=== PATIENT | female | born 1955 | race Caucasian/White ===

== ENCOUNTER 2016-10-21 13:41 | Emergency (ER) | payer OTHER ==
[~2016-10-21] VITALS: Ht 167.6 cm; Wt 72.9 kg
[~2016-10-21 13:41] MED LIST: ALBU1AER9 INH; LPT40 PO; NCDT21X TD; PRAZ2CAP2 PO; RITALIN PO
[2016-10-21 13:43] VITALS: TEMP 37.1; Ht 167.6 cm; Wt 72.9 kg
[2016-10-21] MEDS ORDERED: DIFL500T PO (14:10)
[2016-10-21] MEDS ORDERED: LEVO100T PO (14:10)
[2016-10-21] MEDS ORDERED: VNTHFA/IN INH (14:18)
[2016-10-21] MEDS ORDERED: KETOROLAC TROMETHAMINE 30 MG/ML VIAL IV STA (14:27)
[2016-10-21] MEDS ORDERED: CYCL0.052 OP (14:36)
[2016-10-21] MEDS ORDERED: METH20TA66 PO (14:40)
[2016-10-21] MEDS ORDERED: NRV/5 PO (14:40)
[2016-10-21] MEDS ORDERED: TRAM-10 PO (14:50)
--- NOTE | 2016-10-21 14:59 | DIAGNOSTIC IMAGING REPORT ---
CHEST ONE VIEW PORTABLE CLINICAL HISTORY: Chest pain. COMPARISON STUDY: Chest radiograph August 09, 2016. FINDINGS: Lung volumes are normal. There is no pneumothorax or pleural effusion. Cardiac size is normal. Mediastinal contours are normal. Several cysts within the lungs are unchanged. There is no evidence of pulmonary edema. IMPRESSION: No acute cardiopulmonary findings. No change in appearance of the chest. Electronically signed by: Antony Kelly M.D. 10/21/2016 2:58 PM Dictated Date/Time: 10/21/2016 2:57 PM
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
[2016-10-21 15:46] LABS: BENZODIAZEPINE, URINE NEG (NEG); COCAINE,URINE NEG (NEG); PHENCYCLIDINE, URINE NEG (NEG)
[2016-10-21 15:59] LABS: ACETAMINOPHEN < 2 ug/ml (10-30)
[2016-10-21 16:27] LABS: ALKALINE PHOSPHATASE 79 U/L (45-117); ALT/SGPT 19 U/L (12-78); AST/SGOT 18 U/L (15-37); BLOOD UREA NITROGEN 18 mg/dl (7-18); BUN/CREATININE RATIO 16.7 (10-20); CALCIUM 9.4 mg/dl (8.5-10.1); CARBON DIOXIDE 23 mmol/L (21-32); CHLORIDE 103 mmol/L (98-107); GLUCOSE 112 mg/dl (70-99); POTASSIUM 3.8 mmol/L (3.5-5.1); SODIUM 141 mmol/L (136-145); THYROID STIMULATING HORMONE 0.413 uIu/ml (0.300-4.500)
[2016-10-21 16:55] LABS: BASO % 0.1 %; BASO ABS # 0.01 K/uL (0-0.2); COMPLETE YES; EOS % 0.3 %; HEMATOCRIT 37.6 % (37-47); IG% 0.3 %; LYMPH % 28.2 %; MEAN CELL VOLUME 83.9 fL (80-100); MEAN CORPUSCULAR HEMOGLOBIN 29.2 pg (25-34); MEAN CORPUSCULAR HGB CONC 34.8 g/dl (32-36); MEAN PLATELET VOLUME 9.2 fL (7.4-10.4); MONO % 8.6 %; NEUT % 62.5 %; PLATELET COUNT 244 K/uL (130-400); RED BLOOD COUNT 4.48 M/uL (4.2-5.4); WHITE BLOOD COUNT 7.45 K/uL (4.8-10.8)
[2016-10-21 17:37] VITALS: BP 116/72; PULSE 73; O2SAT 96
[2016-10-21] MEDS ORDERED: TRAZ100T29 PO (17:56)
[2016-10-21] MEDS ORDERED: CLON1TAB3 PO (20:23)
[2016-10-21] MEDS ORDERED: TNR50 PO (20:23)
[2016-10-21] MEDS ORDERED: POLY1POW2 PO (20:23)
[2016-10-21] MEDS ORDERED: FLX/5 PO (20:23)
[2016-10-21] MEDS ORDERED: OMEP20CA9 PO (20:23)
[2016-10-21] MEDS ORDERED: LAMO1TAB21 PO (20:23)
[2016-10-21] MEDS ORDERED: NIFE30TA83 PO (21:54)
[2016-10-28] MEDS ORDERED: TNR50 PO (18:16)
[2016-10-29] MEDS ORDERED: VNTHFA/IN INH (13:16)
[2016-10-29] MEDS ORDERED: KETO10TA PO (13:19)
[2016-11-11] MEDS ORDERED: QUET1TAB7 PO (11:43)
[2016-12-11] MEDS ORDERED: NAPR1TAB9 PO (12:13)
== END 2016-10-21 17:39 | disposition home or self-care (01) ==
LOC: C.EDB 13:42 → C.EDA 17:39
DX: R07.81 Pleurodynia (principal); F41.9 Anxiety disorder, unspecified; J45.909 Unspecified asthma, uncomplicated; M25.559 Pain in unspecified hip; K21.9 Gastro-esophageal reflux disease without esophagitis; M79.7 Fibromyalgia; E78.5 Hyperlipidemia, unspecified; I10 Essential (primary) hypertension; E03.9 Hypothyroidism, unspecified; K58.9 Irritable bowel syndrome, unspecified; F32.9 Major depressive disorder, single episode, unspecified; F11.21 Opioid dependence, in remission; M32.9 Systemic lupus erythematosus, unspecified; F17.200 Nicotine dependence, unspecified, uncomplicated; Z90.710 Acquired absence of both cervix and uterus; Z82.49 Family history of ischemic heart disease and other diseases of the circulatory system

== ENCOUNTER 2016-10-28 10:51 | Observation (INO) | payer OTHER ==
[~2016-10-28] VITALS: Ht 165.1 cm; Wt 70.3 kg
[~2016-10-28 10:51] MED LIST changes: -ALBU1AER9 INH; +CLON1TAB3 PO; +CYCL0.052 OP; +DIFL500T PO; +FLX/5 PO; +LAMO1TAB21 PO; +LEVO100T PO; +METH20TA66 PO; -NCDT21X TD; +NIFE30TA83 PO; +NRV/5 PO; +OMEP20CA9 PO; +POLY1POW2 PO; -RITALIN PO; +TNR50 PO; +TRAM-10 PO; +TRAZ100T29 PO; +VNTHFA/IN INH
[2016-10-28] MEDS ORDERED: SODIUM CHLORIDE 0.9% 1000ML 1,000 ML IV SCH (11:38)
--- NOTE | 2016-10-28 11:57 | EMERGENCY ROOM VISIT NOTE ---
History Report prepared by Zionibgeno: Ronaldo Thapa Under the Supervision of: Dr. Mina Albarran D.O. First contact with patient: 11:36 Chief Complaint: CARDIAC ASSESSMENT Stated Complaint: CHEST PAIN/JAW PAIN/MIGRAINE/NECK TENDERNESS Nursing Triage Summary: Patient arrives by ALS with complaints of jaw numbness/pain, left neck tenderness, left upper chest pain, ems stated right facial droop - did not notice on arrival, No speech issues noted- speech is clear. left axillary tenderness, and lower ext. numbness. Patient has history of lupus and fibromyalgia, patient believes this could be "flare up" from lupus. History of Present Illness The patient is a 61 year old female who presents to the Emergency Room with complaints of headache. The patient has a history of migraines which have been complicated with weakness especially unilateral weakness. She has been seen in our facility previously for similar complaints and had an entire stroke workup. She also follows up with her primary neurologist. The patient states that she started having headaches over the last couple days. The symptoms worsened yesterday. She does state that she was going to visit a family member in the rehabilitation Center this morning when she started noticing difficulty speaking as well as facial drooping. The patient states that she is not sure if this could be a flare of her fibromyalgia but also notices left leg pain left leg tingling abdominal pain and left chest pain pain into the left jaw and pain to the left arm. The patient has not seen her family doctor for this. When the symptoms started to worsen while she was visiting her family member the ambulance was called and the patient was brought to our emergency department. The patient's symptoms appear to wax and wane and appear to be consistent with her previous complicated migraine history. Source of History: patient Onset: two days ago Position: head Quality: other (migraine) Timing: waxes/wanes Associated Symptoms: + abdominal pain, + chest pain, + numbness, + weakness Review of Systems See HPI for pertinent positives & negatives. A total of 10 systems reviewed and were otherwise negative. Past Medical & Surgical Medical Problems: (1) Asthma, Unspecified (2) Cocaine abuse in remission (3) Common Migraine W/O Intractable Migraine (4) Dysarthria (5) Esophageal Reflux (6) Fall (7) Fibromyalgia (8) Fibromyalgia (9) Headache (10) Hepatitis C (11) Hepatitis C Carrier (12) HLD (hyperlipidemia) (13) HTN (hypertension) (14) Hyperlipidemia Nec/Nos (15) Hypertension Nos (16) Hypothyroidism (17) Hypothyroidism Nos (18) Irritable Bowel Syndrome (19) Marijuana abuse (20) Migraine (21) Mood disorder (22) Myalgia And Myositis Nos (23) Opioid Dependence-Remiss (24) SLE (systemic lupus erythematosus) (25) Syst Lupus Erythematosis (26) Tobacco abuse (27) Ulcerative colitis Surgical Problems: (1) H/O colonoscopy (2) H/O total hysterectomy (3) H/O: hysterectomy (4) History of esophagogastroduodenoscopy (EGD) Family History Heart disease Hypertension Social History Smoking Status: Current Every Day Smoker Alcohol Use: occasionally Drug Use: none Marital Status: Housing Status: lives with family Occupation Status: disabled Current/Historical Medications Scheduled Albuterol Hfa (Ventolin Hfa), 2-4 PUFFS INH Q6H Atenolol (Atenolol), 75 MG PO BID Atorvastatin (Atorvastatin Calcium), 40 MG PO LUNCH Clonazepam (Klonopin), 1 MG PO TID Diflunisal (Dolobid), 500 MG PO BID Lamotrigine (Lamotrigine), 100 MG PO BID Levothyroxine Sodium (Synthroid), 100 MCG PO QAM Methylphenidate HCl (Methylphenidate HCl), 10 MG PO DAILY Nicotine (Nicoderm Cq 21MG Patch), 1 PATCH TD DAILY Omeprazole (Prilosec), 20 MG PO BID Polyethylene Glycol 3350 (Bulk (Polyethylene Glycol 3350), 17 GM PO QAM Prazosin Hcl (Prazosin), 2 MG PO HS Trazodone Hcl (Trazodone), 100 MG PO HS Scheduled PRN Cyclobenzaprine HCl (Cyclobenzaprine HCl), 5 MG PO TID PRN for Muscle Spasm Cyclosporine (Ophth) (Restasis), 1 DROP OP BID PRN for DRYNESS Nifedipine Ext Rel (Procardia Xl Ext Rel), 30 MG PO UD PRN for TAKE IN WINTER MONTHS Tramadol (Ultram), 50 MG PO Q6H PRN for Pain Allergies Coded Allergies: Codeine (Verified Allergy, Severe, HIVES, SWELLING, AND NAUSEA, 10/28/16) Pregabalin (Verified Allergy, Severe, ANAPHYLAXIS, 10/28/16) Iodinated Diagnostic Agents (Verified Adverse Reaction, Intermediate, headache, 10/28/16) Physical Exam Vital Signs Date Time Temp Pulse Resp B/P Pulse Ox O2 Delivery O2 Flow Rate FiO2 10/28/16 17:06 62 18 122/63 96 Room Air 10/28/16 16:05 61 10/28/16 15:01 57 16 139/85 94 Room Air 10/28/16 14:40 60 18 131/81 95 Room Air 10/28/16 14:02 61 18 143/87 98 Room Air 10/28/16 13:30 60 20 145/73 97 Room Air 10/28/16 13:01 58 18 116/66 96 Room Air 10/28/16 12:00 61 20 149/87 98 Room Air 10/28/16 11:59 66 10/28/16 11:45 65 20 160/85 97 Room Air 10/28/16 11:30 62 18 158/86 96 Room Air 10/28/16 11:15 61 20 176/84 97 Room Air 10/28/16 10:58 98 Room Air 10/28/16 10:58 37.0 60 20 156/87 98 Room Air 10/28/16 10:58 98 Room Air Physical Exam GENERAL: Patient is awake alert in no acute distress patient is resting comfortably and showing no signs of anxiety EYES: The conjunctivae are clear. The pupils are round and reactive. EARS, NOSE, MOUTH AND THROAT: The nose is without any evidence of any deformity. Mucous membranes are moist tongue is midline NECK: The neck is nontender and supple. RESPIRATORY: Normal respiratory effort is noted there is no evidence of wheezing rhonchi or rales CARDIOVASCULAR: Regular rate and rhythm noted there no murmurs rubs or gallops normal S1 normal S2 GASTROINTESTINAL: The abdomen is soft. Bowel sounds are present in all quadrants. Abdomen is nontender MUSCULOSKELETAL/EXTREMITIES: There is no evidence of gross deformity full range of motion is noted in the hips and shoulders SKIN: There is no obvious evidence of any rash. There are no petechiae, pallor or cyanosis noted. NEUROLOGIC: Patient is awake alert and oriented x3. Speech was dysarthric but understandable. There is no definite facial droop appreciated. Patellar tendon reflexes were 3 plus bilaterally. Patient was able to hold each leg off the bed for greater than 5 seconds. There is no drift in the upper extremities. Medical Decision & Procedures ER Provider Diagnostic Interpretation: Radiology results as stated below per my review and radiologist interpretation: CHEST ONE VIEW PORTABLE CLINICAL HISTORY: Stroke ATYPICAL CHEST PAIN, MIGRAINE. COMPARISON STUDY: 10/21/2016 FINDINGS: The heart is at the upper limits of normal in size. Mediastinal prominence is likely secondary to film rotation in the AP positioning. There is a left lower lobe lung cyst measuring 7 cm. There is no failure. There is no focal pulmonary consolidation.[ IMPRESSION: Stable left lower lobe pulmonary cyst. No active disease in the chest. Electronically signed by: Rudy Rubi M.D. 10/28/2016 11:59 AM Dictated Date/Time: 10/28/2016 11:[address] HEAD WITHOUT CONTRAST (CT) CLINICAL HISTORY: Stroke COMPARISON STUDY: 08-23 TECHNIQUE: Axial CT of the brain is performed from the vertex to the skull base. IV contrast was not administered for this examination. CT DOSE: 537.48 mGy.cm FINDINGS: No intra or extra-axial mass lesions are visualized. There is no CT evidence of acute cortical infarction. There is no evidence of midline shift. There is no acute hemorrhage. No calvarial fractures are visualized. There are minor white matter hypodensities likely on a small vessel basis. There is no evidence of pathologic ventricular dilatation. There is no evidence of acute sinusitis IMPRESSION: No acute intracranial findings Electronically signed by: Rudy Rubi M.D. 10/28/2016 12:47 PM Dictated Date/Time: 10/28/2016 12:46 PM Laboratory Results 10/28/16 12:57 Red Blood Count 4.91, Mean Corpuscular Volume 83.7, Mean Corpuscular Hemoglobin 29.3, Mean Corpuscular Hemoglobin Concent 35.0, Mean Platelet Volume 9.5, Neutrophils (%) (Auto) 55.8, Lymphocytes (%) (Auto) 36.4, Monocytes (%) (Auto) 7.0, Eosinophils (%) (Auto) 0.3, Basophils (%) (Auto) 0.3, Neutrophils # (Auto) 3.43, Lymphocytes # (Auto) 2.24, Monocytes # (Auto) 0.43, Eosinophils # (Auto) 0.02, Basophils # (Auto) 0.02 10/28/16 12:57 Test 10/28/16 11:56 10/28/16 12:10 10/28/16 12:57 10/28/16 17:33 Bedside Glucose 97 mg/dl (70-90) Urine Opiates Screen NEG (NEG) Urine Methadone, Qualitative NEG (NEG) Urine Barbiturates NEG (NEG) Urine Phencyclidine (PCP) Level NEG (NEG) Ur Amphetamine/Methamphetamine NEG (NEG) MDMA (Ecstasy) Screen NEG (NEG) Urine Benzodiazepines Screen NEG (NEG) Urine Cocaine Metabolite NEG (NEG) Urine Marijuana (THC) NEG (NEG) White Blood Count 6.15 K/uL (4.8-10.8) Red Blood Count 4.91 M/uL (4.2-5.4) Hemoglobin 14.4 g/dL (12.0-16.0) Hematocrit 41.1 % (37-47) Mean Corpuscular Volume 83.7 fL (80-100) Mean Corpuscular Hemoglobin 29.3 pg (25-34) Mean Corpuscular Hemoglobin Concent 35.0 g/dl (32-36) Platelet Count 230 K/uL (130-400) Mean Platelet Volume 9.5 fL (7.4-10.4) Neutrophils (%) (Auto) 55.8 % Lymphocytes (%) (Auto) 36.4 % Monocytes (%) (Auto) 7.0 % Eosinophils (%) (Auto) 0.3 % Basophils (%) (Auto) 0.3 % Neutrophils # (Auto) 3.43 K/uL (1.4-6.5) Lymphocytes # (Auto) 2.24 K/uL (1.2-3.4) Monocytes # (Auto) 0.43 K/uL (0.11-0.59) Eosinophils # (Auto) 0.02 K/uL (0-0.5) Basophils # (Auto) 0.02 K/uL (0-0.2) RDW Standard Deviation 46.4 fL (36.4-46.3) RDW Coefficient of Variation 15.1 % (11.5-14.5) Immature Granulocyte % (Auto) 0.2 % Immature Granulocyte # (Auto) 0.01 K/uL (0.00-0.02) Prothrombin Time 10.5 SECONDS (9.0-12.0) Prothromb Time International Ratio 1.0 (0.9-1.1) Activated Partial Thromboplast Time 26.0 SECONDS (21.0-31.0) Partial Thromboplastin Ratio 1.0 Anion Gap 12.0 mmol/L (3-11) Est Creatinine Clear Calc Drug Dose 63.6 ml/min Estimated GFR () 74.1 Estimated GFR (Non- 63.9 BUN/Creatinine Ratio 9.4 (10-20) Calcium Level 9.6 mg/dl (8.5-10.1) Total Creatine Kinase 200 U/L (26-192) Creatine Kinase MB 3.2 ng/ml (0.5-3.6) Creatine Kinase MB Ratio 1.6 (0-3.0) Troponin I < 0.015 ng/ml (0-0.045) Vitamin B12 Level 722 pg/mL (211-911) Ethyl Alcohol mg/dL < 3.0 mg/dl (0-3) Laboratory results per my review. Medications Administered Medications (Trade) Dose Ordered Sig/Nidhi Route Start Time Stop Time Status Last Admin Dose Admin Sodium Chloride (Nss 1000ml) 1,000 ml @ 50 mls/hr Q20H IV 10/28/16 11:38 11/27/16 11:37 10/28/16 12:28 50 MLS/HR Acetaminophen (Tylenol Tab) 1,000 mg NOW STAT PO 10/28/16 13:05 10/28/16 13:06 DC 10/28/16 13:13 1,000 MG ECG Indication: weakness Rate (beats per minute): 54 Rhythm: sinus bradycardia Findings: no acute ischemic change, no ectopy Change: no significant change (10/21/2016) ED Course 1145: The patient was evaluated in room C2b. A complete history and physical examination were performed. 1138: NSS 1000 ml @ 50 mls/hr. 1305: Tylenol 1000 mg PO. 1458: The patient was updated. 1605: Spoke with Pretty Santos PA-C, [facility] Hospitalist. The patient will be evaluated. Medical Decision Prior records/ancillary studies reviewed and summarized above. Nursing notes reviewed. Differential diagnosis: Etiologies such as metabolic, infection, hypo/hyperglycemia, electrolyte abnormalities, cardiac sources, intracerebral event, toxicologic, neurologic, as well as others were entertained. The patient is a 61-year-old female who presented to the emergency department with multiple complaints. She complained of chest pain which was left-sided and went to her neck and her jaw. She also complained of difficulty speaking. She had a headache which she thought was consistent with her usual migraine headache. She's had a history of complex migraines in the past. The patient has had symptoms which have been waxing and waning over the last 24 hours. The patient was reevaluated multiple times. I discussed the patient's laboratory and radiographic studies with her. Certainly she has a very confusing presentation. She was here for a similar episode some months ago and was diagnosed with a nonspecific encephalopathy. I discussed the patient's condition with the on-call [facility]ist group. They have agreed to evaluate the patient in the emergency department for further management and disposition. Consults Time Called: 1600 Consulting Physician: Pretty Santos PA-C, [facility]. Returned Call: [phone]: Spoke with Pretty Santos PA-C, [facility]. The patient will be evaluated. Impression Primary Impression: Left sided chest pain Additional Impressions: Headache Dysarthria Scribe Attestation The scribe's documentation has been prepared under my direction and personally reviewed by me in its entirety. I confirm that the note above accurately reflects all work, treatment, procedures, and medical decision making performed by me. Departure Information Dispostion Being Evaluated By Hospitalist Prescriptions Atenolol (Atenolol) 50 Mg Tab 75 MG PO BID, #30 Prov: Aureliano Stratton MD 10/28/16 Referrals Monica Day M.D. (PCP) Patient Instructions My [facility] Problem Qualifiers
--- NOTE | 2016-10-28 12:00 | DIAGNOSTIC IMAGING REPORT ---
CHEST ONE VIEW PORTABLE CLINICAL HISTORY: Stroke ATYPICAL CHEST PAIN, MIGRAINE. COMPARISON STUDY: 10/21/2016 FINDINGS: The heart is at the upper limits of normal in size. Mediastinal prominence is likely secondary to film rotation in the AP positioning. There is a left lower lobe lung cyst measuring 7 cm. There is no failure. There is no focal pulmonary consolidation.[ IMPRESSION: Stable left lower lobe pulmonary cyst. No active disease in the chest. Electronically signed by: Rudy Rubi M.D. 10/28/2016 11:59 AM Dictated Date/Time: 10/28/2016 11:58 AM
--- NOTE | 2016-10-28 12:48 | DIAGNOSTIC IMAGING REPORT ---
CT HEAD WITHOUT CONTRAST (CT) CLINICAL HISTORY: Stroke COMPARISON STUDY: 08-23 TECHNIQUE: Axial CT of the brain is performed from the vertex to the skull base. IV contrast was not administered for this examination. CT DOSE: 537.48 mGy.cm FINDINGS: No intra or extra-axial mass lesions are visualized. There is no CT evidence of acute cortical infarction. There is no evidence of midline shift. There is no acute hemorrhage. No calvarial fractures are visualized. There are minor white matter hypodensities likely on a small vessel basis. There is no evidence of pathologic ventricular dilatation. There is no evidence of acute sinusitis IMPRESSION: No acute intracranial findings Electronically signed by: Rudy Rubi M.D. 10/28/2016 12:47 PM Dictated Date/Time: 10/28/2016 12:46 PM
[2016-10-28 13:02] LABS: BENZODIAZEPINE, URINE NEG (NEG); COCAINE,URINE NEG (NEG); PHENCYCLIDINE, URINE NEG (NEG)
[2016-10-28] MEDS ORDERED: ACETAMINOPHEN 500 MG TAB PO STA (13:05)
[2016-10-28 13:10] LABS: BASO % 0.3 %; BASO ABS # 0.02 K/uL (0-0.2); COMPLETE YES; EOS % 0.3 %; HEMATOCRIT 41.1 % (37-47); IG% 0.2 %; LYMPH % 36.4 %; LYMPH ABS # 2.24 K/uL (1.2-3.4); MEAN CELL VOLUME 83.7 fL (80-100); MEAN CORPUSCULAR HEMOGLOBIN 29.3 pg (25-34); MEAN PLATELET VOLUME 9.5 fL (7.4-10.4); NEUT % 55.8 %; PLATELET COUNT 230 K/uL (130-400); RED BLOOD COUNT 4.91 M/uL (4.2-5.4); WHITE BLOOD COUNT 6.15 K/uL (4.8-10.8)
[2016-10-28 13:21] LABS: PROTHROMBIN TIME (PATIENT) 10.5 SECONDS (9.0-12.0)
[2016-10-28 13:31] LABS: BLOOD UREA NITROGEN 9 mg/dl (7-18); BUN/CREATININE RATIO 9.4 (10-20); CALCIUM 9.6 mg/dl (8.5-10.1); CARBON DIOXIDE 24 mmol/L (21-32); CHLORIDE 104 mmol/L (98-107); CREATININE 0.97 mg/dl (0.60-1.20); GLUCOSE 85 mg/dl (70-99); POTASSIUM 3.6 mmol/L (3.5-5.1); SODIUM 140 mmol/L (136-145)
[2016-10-28 13:36] LABS: CKMB/CK RATIO 1.6 (0-3.0)
[2016-10-28] MEDS ORDERED: NCDT21X TD (13:58)
[2016-10-28] MEDS ORDERED: ONDANSETRON INJ 2 MG/ML 2 ML VIAL IV PRN (17:00)
[2016-10-28] MEDS ORDERED: NITROGLYCERIN 0.4 MG SL PER TAB CHARGE SL PRN (17:00)
[2016-10-28] MEDS ORDERED: ALBUTEROL HFA 8 GM INHALER INH PRN (17:15)
[2016-10-28] MEDS ORDERED: CYCLOBENZAPRINE HCL 5 MG TAB PO PRN (17:15)
--- NOTE | 2016-10-28 17:34 | History and Physical ---
History & Physical Date & Time of Service: Oct 28, 2016 at 17:13 Chief Complaint: Chest Pain/Jaw Pain/Migraine/Neck Tenderness Primary Care Physician: Monica Day M.D. History of Present Illness Source: patient, family, clinic records, hospital records Patient seen and examined. 61 year old female with PMHx of HTN, HLD, fibromyalgia, mood disorder, hypothyroidism, SLE, Hep C, and other problems listed below presents to the ED with multiple complaints for several weeks. Patient reports that her brother about a month ago she states since then she has been having more migraines, these migraines are like a "vice oil burner" around her skull as well as neck pain. She states her latest migraine began yesterday. She states with these migraines she has trouble finding the right words to speak, she also reports some difficulty speaking. She states this morning she had right sided facial numbness but this has resolved. She states she has also been having 4 weeks of left sided chest pain, that is constant and worsened over this week. She states the chest pain is worse with movement and tender to palpation. She states she has been secretly taking aspirin in case she is having a heart attack or stroke. She reports dyspnea on exertion such as walking up the steps but nothing at rest. She reports constant diarrhea, and an episode of vomiting today. She reports she has been crying a lot and feels like she may have had "a break down" She states she sees a psychiatrist at [facility] and is suppose to start grief therapy. She states she feels generally weak and "run down" she has had multiple falls this week. She states today she was visiting a friend who thought these symptoms sounded like a stroke so she came to the ED. She denies fevers, chills, URI symptoms, dysuria, calf pain and edema. She denies unilateral weakness, vision changes. She denies suicidal and homicidal ideations. She reports she drinks 2 beers at night, and she smokes marijuana which she states she is never going to give up. In the ED VS are stable, Liana are negative x 1, CT head is negative for acute changes. She will be observed for further workup and treatment. Past Medical/Surgical History Medical Problems: (1) Asthma, Unspecified Status: Chronic (2) Cocaine abuse in remission Permanent Comment: heroin abuse in remission -sober from Heroin and Cocain x 34 years Status: Chronic (3) Common Migraine W/O Intractable Migraine Status: Chronic (4) Dysarthria Status: Resolved (5) Esophageal Reflux Status: Chronic (6) Fall Status: Resolved (7) Fibromyalgia Status: Chronic (8) Fibromyalgia Status: Chronic (9) Headache Status: Resolved (10) Hepatitis C Status: Chronic (11) Hepatitis C Carrier Status: Chronic (12) HLD (hyperlipidemia) Status: Chronic (13) HTN (hypertension) Status: Chronic (14) Hyperlipidemia Nec/Nos Status: Chronic (15) Hypertension Nos Status: Chronic (16) Hypothyroidism Status: Chronic (17) Hypothyroidism Nos Status: Chronic (18) Irritable Bowel Syndrome Status: Chronic (19) Marijuana abuse Status: Chronic (20) Migraine Status: Chronic (21) Mood disorder Status: Chronic (22) Myalgia And Myositis Nos Status: Chronic (23) Opioid Dependence-Remiss Status: Chronic (24) SLE (systemic lupus erythematosus) Status: Chronic (25) Syst Lupus Erythematosis Status: Chronic (26) Tobacco abuse Status: Chronic (27) Ulcerative colitis Status: Chronic Surgical Problems: (1) H/O colonoscopy Status: Chronic (2) H/O total hysterectomy Status: Chronic (3) H/O: hysterectomy Status: Chronic (4) History of esophagogastroduodenoscopy (EGD) Status: Chronic Family History Diabetes mellitus Heart disease Hypertension Stroke Social History Smoking Status: Current Every Day Smoker Drug Use: none Marital Status: Housing status: lives alone Occupational Status: disabled Immunizations History of Influenza Vaccine: Yes Influenza Vaccine Date: Jul 23, 2012 History of Tetanus Vaccine?: Yes Tetanus Immunization Date: Mar 23, 2009 History of Pneumococcal: No Pneumococcal Date: Apr 12, 2009 History of Hepatitis B Vaccine: No Multi-Drug Resistant Organisms History of MDRO: No Allergies Coded Allergies: Codeine (Verified Allergy, Severe, HIVES, SWELLING, AND NAUSEA, 10/28/16) Pregabalin (Verified Allergy, Severe, ANAPHYLAXIS, 10/28/16) Iodinated Diagnostic Agents (Verified Adverse Reaction, Intermediate, headache, 10/28/16) Home Medications Scheduled Albuterol Hfa (Ventolin Hfa), 2-4 PUFFS INH Q6H Atenolol (Atenolol), 75 MG PO BID Atorvastatin (Atorvastatin Calcium), 40 MG PO LUNCH Clonazepam (Klonopin), 1 MG PO TID Diflunisal (Dolobid), 500 MG PO BID Lamotrigine (Lamotrigine), 100 MG PO BID Levothyroxine Sodium (Synthroid), 100 MCG PO QAM Methylphenidate HCl (Methylphenidate HCl), 10 MG PO DAILY Nicotine (Nicoderm Cq 21MG Patch), 1 PATCH TD DAILY Omeprazole (Prilosec), 20 MG PO BID Polyethylene Glycol 3350 (Bulk (Polyethylene Glycol 3350), 17 GM PO QAM Prazosin Hcl (Prazosin), 2 MG PO HS Trazodone Hcl (Trazodone), 100 MG PO HS Scheduled PRN Cyclobenzaprine HCl (Cyclobenzaprine HCl), 5 MG PO TID PRN for Muscle Spasm Cyclosporine (Ophth) (Restasis), 1 DROP OP BID PRN for DRYNESS Nifedipine Ext Rel (Procardia Xl Ext Rel), 30 MG PO UD PRN for TAKE IN WINTER MONTHS Tramadol (Ultram), 50 MG PO Q6H PRN for Pain Review of Systems See above for pertinent positives & negatives. A total of 10 systems reviewed and were otherwise negative. Physical Exam Vital Signs Date Time Temp Pulse Resp B/P Pulse Ox O2 Delivery O2 Flow Rate FiO2 10/28/16 17:06 62 18 122/63 96 Room Air 10/28/16 16:05 61 10/28/16 15:01 57 16 139/85 94 Room Air 10/28/16 14:40 60 18 131/81 95 Room Air 10/28/16 14:02 61 18 143/87 98 Room Air 10/28/16 13:30 60 20 145/73 97 Room Air 10/28/16 13:01 58 18 116/66 96 Room Air 10/28/16 12:00 61 20 149/87 98 Room Air 10/28/16 11:59 66 10/28/16 11:45 65 20 160/85 97 Room Air 10/28/16 11:30 62 18 158/86 96 Room Air 10/28/16 11:15 61 20 176/84 97 Room Air 10/28/16 10:58 98 Room Air 10/28/16 10:58 37.0 60 20 156/87 98 Room Air 10/28/16 10:58 98 Room Air General Appearance: + pertinent finding (WD/WN 61 year old female tearful throughout exam lying in bed in NAD with significant other at bedside ) Head: normocephalic, atraumatic Eyes: PERRL, EOMI, sclerae normal ENT: hearing grossly normal, pharynx normal Neck: supple, no JVD Respiratory/Chest: chest non-tender, lungs clear, normal breath sounds, no respiratory distress, no accessory muscle use Cardiovascular: regular rate, rhythm, no edema, no gallop, no JVD, no murmur, normal peripheral pulses Abdomen/GI: normal bowel sounds, non tender, soft Back: normal inspection, no muscle spasm Extremities/Musculoskelatal: no calf tenderness, normal capillary refill, no pedal edema Neurologic/Psych: alert, oriented x 3, + pertinent finding (tearful throughtout exam, denies suicidal and homicidal ideations, speech slow but clear , no focal deficits noted ) Skin: normal color, warm/dry, no rash Lymphatic: no adenopathy Diagnostics Laboratory Results Results Past 24 Hours Test 10/28/16 11:56 10/28/16 12:10 10/28/16 12:57 10/28/16 17:02 Range/Units Bedside Glucose 97 70-90 mg/dl Urine Opiates Screen NEG NEG Urine Methadone, Qualitative NEG NEG Urine Barbiturates NEG NEG Urine Phencyclidine (PCP) Level NEG NEG Ur Amphetamine/Methamphetamine NEG NEG MDMA (Ecstasy) Screen NEG NEG Urine Benzodiazepines Screen NEG NEG Urine Cocaine Metabolite NEG NEG Urine Marijuana (THC) NEG NEG White Blood Count 6.15 4.8-10.8 K/uL Red Blood Count 4.91 4.2-5.4 M/uL Hemoglobin 14.4 12.0-16.0 g/dL Hematocrit 41.1 37-47 % Mean Corpuscular Volume 83.7 80-100 fL Mean Corpuscular Hemoglobin 29.3 25-34 pg Mean Corpuscular Hemoglobin Concent 35.0 32-36 g/dl Platelet Count 230 130-400 K/uL Mean Platelet Volume 9.5 7.4-10.4 fL Neutrophils (%) (Auto) 55.8 % Lymphocytes (%) (Auto) 36.4 % Monocytes (%) (Auto) 7.0 % Eosinophils (%) (Auto) 0.3 % Basophils (%) (Auto) 0.3 % Neutrophils # (Auto) 3.43 1.4-6.5 K/uL Lymphocytes # (Auto) 2.24 1.2-3.4 K/uL Monocytes # (Auto) 0.43 0.11-0.59 K/uL Eosinophils # (Auto) 0.02 0-0.5 K/uL Basophils # (Auto) 0.02 0-0.2 K/uL RDW Standard Deviation 46.4 36.4-46.3 fL RDW Coefficient of Variation 15.1 11.5-14.5 % Immature Granulocyte % (Auto) 0.2 % Immature Granulocyte # (Auto) 0.01 0.00-0.02 K/uL Prothrombin Time 10.5 9.0-12.0 SECONDS Prothromb Time International Ratio 1.0 0.9-1.1 Activated Partial Thromboplast Time 26.0 21.0-31.0 SECONDS Partial Thromboplastin Ratio 1.0 Sodium Level 140 136-145 mmol/L Potassium Level 3.6 3.5-5.1 mmol/L Chloride Level 104 98-107 mmol/L Carbon Dioxide Level 24 21-32 mmol/L Anion Gap 12.0 3-11 mmol/L Blood Urea Nitrogen 9 7-18 mg/dl Creatinine 0.97 0.60-1.20 mg/dl Est Creatinine Clear Calc Drug Dose 63.6 ml/min Estimated GFR () 74.1 Estimated GFR (Non- 63.9 BUN/Creatinine Ratio 9.4 10-20 Random Glucose 85 70-99 mg/dl Calcium Level 9.6 8.5-10.1 mg/dl Total Creatine Kinase 200 26-192 U/L Creatine Kinase MB 3.2 0.5-3.6 ng/ml Creatine Kinase MB Ratio 1.6 0-3.0 Troponin I < 0.015 0-0.045 ng/ml Diagnostic Radiology CXR Per radiologist read: IMPRESSION: Stable left lower lobe pulmonary cyst. No active disease in the chest. CT HEAD Per radiologist read: IMPRESSION: No acute intracranial findings EKG Sinus Bradycardia 58 BPM, QTc 443 Impression Assessment and Plan 61 year old female presents to the ED complaining of headache, numbness, chest pain, and other symptoms for over a month RECURRENT HEADACHE/NUMBNESS -observation in tele -CT head negative -? cause, states this is similar to her migraines in the past. Also reports recent stressor d/t of brother and this appears to be when symptoms worsened -Will check MRI brain combo -Neuro checks q4h -Check B12 -Psychiatry consult placed -Continue Aspirin and statin daily for CVA prevention -CBC, PRP, Mg in AM CHEST PAIN -Atypical, likely musculoskeletal -will serial Liana, EKGs -update echo -warm compresses -Aspirin daily -Continue BB, Statin -monitor in tele DIARRHEA -check c. diff MOOD DISORDER - RECENT IN THE FAMILY -denies suicidal and homicidal ideations -continue Lamictal, Ritalin, Klonopin, Trazodone -Psych consult placed GENERALIZED WEAKNESS -PT/OT Eval FIBROMYALGIA -continue Flexeril, tramadol prn HLD -continue Statin HTN -stable -continue BB. Procardia HYPOTHYROIDISM -continue Synthroid -check TSH HEPATITIS C -per records SYSTEMIC LUPUS ERYTHEMATOUS -per records TOBACCO ABUSE -Cessation counseling given -Nicotine patch ordered MARIJUANA ABUSE -per patient -Tox screen clean -cessation counseling given DVT PROPHYLAXIS: Sq Lovenox CODE STATUS: FULL CODE DISPO:observation pending further workup Patient seen in collaboration with Dr. Stratton Agree with above H and P. 61F with hx of migraines and who says her brother recently and she is very depressed and getting headaches and feels right side of face numb and sometimes having speech problems. Currently she is talking fine and says her pain is somewhat better. Also has left sided chest pain on movement. Denies fevers. Feeling hungry and wants to eat. p/e Ge not in distress Cvs s1 and s2 heard no murmurs Rs cta b/l no wheezing no crackles Abd benign Food Supervisor non focal Ext no erythema. a/p Headaches numbness on right side of face stress of brother passing away recently initial ct head negative will f/u MRI head will consider neuro consult based on mri findings and if continuation of symptoms Mood disorder depression psychiatry consult Chest pain mostly musculoskeletal f/u CE and echo VTE Prophylaxis VTE Risk Assessment Done? Y/N: Yes Risk Level: Moderate
[2016-10-28] MEDS ORDERED: TNR50 PO (18:16)
[2016-10-28] MEDS: TRAMADOL HCL 50 MG TAB PO PRN (18:54)
--- NOTE | 2016-10-28 20:06 | DIAGNOSTIC IMAGING REPORT ---
Brain MRI WITHOUT CONTRAST HISTORY: Mental status change headache, speech changes TECHNIQUE: Multiplanar multisequence MRI of the brain was performed without the use of contrast. The patient declined contrast administration COMPARISON STUDY: 08/07/2014 FINDINGS: There are no areas of restricted diffusion to suggest acute infarction. The midline structures are intact. The paranasal sinuses are clear. The mastoid air cells are clear. The ventricles and sulci are within normal limits for age. There is no mass, hematoma, midline shift. The major vascular flow-voids at the skull base are well maintained. IMPRESSION: No acute intracranial abnormality. No change from the prior study. Electronically signed by: Brendan Feldman M.D. 10/28/2016 8:05 PM Dictated Date/Time: 10/28/2016 8:03 PM
[2016-10-28 20:30] VITALS: BP 106/67; PULSE 56; TEMP 36.5; O2SAT 97; Ht 165.1 cm; Wt 70.3 kg
[2016-10-28] MEDS: ACETAMINOPHEN 325 MG TAB PO PRN (20:53)
[2016-10-28] MEDS ORDERED: PRAZOSIN HCL 1 MG CAP PO SCH (21:00)
[2016-10-28] MEDS ORDERED: ENOXAPARIN 40 MG/0.4 ML SYR SC SCH (21:00)
[2016-10-28] MEDS ORDERED: ATORVASTATIN 40 MG TAB PO SCH (21:00)
[2016-10-28] MEDS ORDERED: TRAZODONE HCL 100 MG TAB PO SCH (21:00)
[2016-10-28 21:35] VITALS: BP 106/67; PULSE 56
[2016-10-28] MEDS: CLONAZEPAM 1 MG TAB PO SCH (21:39)
[2016-10-28] MEDS: PANTOprazole SOD 40 MG TAB PO SCH (21:42)
[2016-10-28 21:45] LABS: CKMB/CK RATIO 1.8 (0-3.0)
[2016-10-28] MEDS ORDERED: IV FLUIDS COMPLETED PRN (22:00)
[2016-10-28] MEDS ORDERED: CYCLOSPORINE 0.05% OP PRN (22:45)
[2016-10-28 23:49] VITALS: BP 101/63; PULSE 65; TEMP 36.6; O2SAT 96
[2016-10-29 01:45] LABS: CKMB/CK RATIO 1.9 (0-3.0)
[2016-10-29 04:00] VITALS: BP 119/68; PULSE 62; TEMP 36.6; O2SAT 95
[2016-10-29] MEDS: TRAMADOL HCL 50 MG TAB PO PRN ×2 (05:17→12:09)
[2016-10-29 06:00] LABS: HEMATOCRIT 42.5 % (37-47); MEAN CELL VOLUME 85.3 fL (80-100); MEAN CORPUSCULAR HEMOGLOBIN 29.7 pg (25-34); MEAN CORPUSCULAR HGB CONC 34.8 g/dl (32-36); MEAN PLATELET VOLUME 9.3 fL (7.4-10.4); PLATELET COUNT 225 K/uL (130-400); RED BLOOD COUNT 4.98 M/uL (4.2-5.4); WHITE BLOOD COUNT 5.32 K/uL (4.8-10.8)
[2016-10-29] MEDS ORDERED: LEVOTHYROXINE 100 MCG TAB PO SCH (06:30)
[2016-10-29 06:44] LABS: BUN/CREATININE RATIO 9.3 (10-20); CALCIUM 9.2 mg/dl (8.5-10.1); CREATININE 1.1 mg/dl (0.60-1.20); MAGNESIUM 2.4 mg/dl (1.8-2.4); POTASSIUM 3.7 mmol/L (3.5-5.1)
[2016-10-29 06:55] LABS: THYROID STIMULATING HORMONE 0.602 uIu/ml (0.300-4.500)
[2016-10-29 07:19] VITALS: BP 94/61; PULSE 72; TEMP 36.4; O2SAT 95
[2016-10-29] MEDS: CLONAZEPAM 1 MG TAB PO SCH ×2 (07:52→13:20)
[2016-10-29] MEDS: PANTOprazole SOD 40 MG TAB PO SCH (07:55)
[2016-10-29] MEDS ORDERED: POLYETHYLENE (MIRALAX) 17 GM PACK PO SCH ×2 (09:00)
[2016-10-29] MEDS ORDERED: NICOTINE 14 MG/24 HR TDSY TD SCH (09:00)
[2016-10-29] MEDS ORDERED: NIFEdipine 30 MG CR TAB PO SCH (09:00)
[2016-10-29] MEDS ORDERED: ASPIRIN 81 MG ECTAB PO SCH (09:00)
[2016-10-29] MEDS ORDERED: METHYLPHENIDATE HCL 10 MG TAB PO SCH (09:00)
[2016-10-29] MEDS: ACETAMINOPHEN 325 MG TAB PO PRN (09:05)
[2016-10-29 10:29] VITALS: BP 124/80; PULSE 70; O2SAT 95
[2016-10-29 11:39] VITALS: BP 109/60; PULSE 70; TEMP 36.9; O2SAT 96
--- NOTE | 2016-10-29 12:14 | Progress Note ---
Internal Med Progress Note Date of Service: Oct 29, 2016. Provider Documentation: SUBJECTIVE: Patient is emotional and crying on and off as recently her brother and since than has been more depressed Has multiple vague complaints but denies any headaches now, no nausea, vomiting , weakness, sensory issues, SOB, fever, chills, chest pain, SOB. Wants to go home Denies any suicidal ideations OBJECTIVE: Vital Signs-as noted below Exam: General-Emotional crying, AAOX3, no apparent distress Neck-Supple Lungs-AEBE, no wheezing, crackles Heart-S1, S2 normal, no murmurs Abdomen-Soft, non distended, Non tender, BS present Extremities-No edema Neuro-AAOX3, No focal deficits Lab data as noted below. Diagnostic Radiology CXR Per radiologist read: IMPRESSION: Stable left lower lobe pulmonary cyst. No active disease in the chest. CT HEAD Per radiologist read: IMPRESSION: No acute intracranial findings EKG Sinus Bradycardia 58 BPM, QTc 443 ASSESSMENT & PLAN: Assessment and Plan 61 year old female presents to the ED complaining of headache, numbness, chest pain, and other symptoms for over a month. Has been depressed due to brother passing away recently. RECURRENT HEADACHE/NUMBNESS : Resolved Likely migraine which has resolved now. Contributing factors: Psychological issues- Fibromyalgia, Depression, anxiety -Work up- CT head negative ; MRI brain- negative for stroke -Toradol PRN for headaches CHEST PAIN -Atypical, likely musculoskeletal -EKG- no acute changes, Trop x 3 negative -No further intervention recommended DIARRHEA -No BM since in hospital -C diff still pending collection MOOD DISORDER - RECENT IN THE FAMILY -denies suicidal and homicidal ideations -continue Lamictal, Ritalin, Klonopin, Trazodone -Psych consult placed GENERALIZED WEAKNESS -Able to ambulate FIBROMYALGIA -continue Flexeril, tramadol prn HLD -continue Statin HTN -stable -continue BB. Procardia HYPOTHYROIDISM -continue Synthroid -check TSH - 0.062 HEPATITIS C -per records SYSTEMIC LUPUS ERYTHEMATOUS -per records TOBACCO ABUSE -Cessation counseling given -Nicotine patch ordered MARIJUANA ABUSE -per patient -Tox screen clean -cessation counseling given DVT PROPHYLAXIS: Sq Lovenox CODE STATUS: FULL CODE DISPO:observation Okay to discharge home once evaluated by psychiatry Vital Signs: Date Time Temp Pulse Resp B/P Pulse Ox O2 Delivery O2 Flow Rate FiO2 10/29/16 13:21 36.9 70 18 96 Room Air 10/29/16 12:00 Room Air 10/29/16 11:39 36.9 70 18 109/60 96 Room Air 10/29/16 10:29 70 18 124/80 95 Room Air 10/29/16 08:00 Room Air 10/29/16 07:19 36.4 72 18 94/61 95 Room Air 10/29/16 04:00 Room Air 10/29/16 04:00 36.6 62 16 119/68 95 Room Air 10/29/16 00:00 Room Air 10/28/16 23:49 36.6 65 16 101/63 96 Room Air 10/28/16 21:35 56 106/67 10/28/16 20:30 36.5 56 18 106/67 97 Room Air 10/28/16 17:06 62 18 122/63 96 Room Air Lab Results: Results Past 24 Hours Test 10/28/16 17:33 10/28/16 21:03 10/29/16 01:08 10/29/16 05:40 Range/Units Vitamin B12 Level 722 211-911 pg/mL Ethyl Alcohol mg/dL < 3.0 0-3 mg/dl Total Creatine Kinase 120 106 26-192 U/L Creatine Kinase MB 2.2 2.0 0.5-3.6 ng/ml Creatine Kinase MB Ratio 1.8 1.9 0-3.0 Troponin I < 0.015 < 0.015 0-0.045 ng/ml White Blood Count 5.32 4.8-10.8 K/uL Red Blood Count 4.98 4.2-5.4 M/uL Hemoglobin 14.8 12.0-16.0 g/dL Hematocrit 42.5 37-47 % Mean Corpuscular Volume 85.3 80-100 fL Mean Corpuscular Hemoglobin 29.7 25-34 pg Mean Corpuscular Hemoglobin Concent 34.8 32-36 g/dl RDW Standard Deviation 48.1 36.4-46.3 fL RDW Coefficient of Variation 15.6 11.5-14.5 % Platelet Count 225 130-400 K/uL Mean Platelet Volume 9.3 7.4-10.4 fL Sodium Level 138 136-145 mmol/L Potassium Level 3.7 3.5-5.1 mmol/L Chloride Level 103 98-107 mmol/L Carbon Dioxide Level 25 21-32 mmol/L Anion Gap 10.0 3-11 mmol/L Blood Urea Nitrogen 10 7-18 mg/dl Creatinine 1.10 0.60-1.20 mg/dl Est Creatinine Clear Calc Drug Dose 54.2 ml/min Estimated GFR () 63.6 Estimated GFR (Non- 54.9 BUN/Creatinine Ratio 9.3 10-20 Random Glucose 94 70-99 mg/dl Calcium Level 9.2 8.5-10.1 mg/dl Magnesium Level 2.4 1.8-2.4 mg/dl Triglycerides Level 104 0-150 mg/dl Cholesterol Level 171 0-200 mg/dl HDL Cholesterol 85 mg/dl LDL Cholesterol, Calculated 65 mg/dl VLDL Cholesterol, Calculated 21 mg/dl Cholesterol/HDL Ratio 2.0 Thyroid Stimulating Hormone (TSH) 0.602 0.300-4.500 uIu/ml
[2016-10-29] MEDS ORDERED: VNTHFA/IN INH (13:16)
--- NOTE | 2016-10-29 13:18 | Discharge Instructions ---
Discharge Instructions Admission Reason for Admission: Fall, Headache, Left-Sided Chest Pain Discharge Discharge Diagnosis / Problem: 1. Migraine headache Discharge Goals Goal(s): Diagnostic testing, Therapeutic intervention Activity Recommendations Activity Limitations: resume your previous activity . Instructions / Follow-Up Instructions / Follow-Up No changes in medications FOLLOW UP 1. Dr Monica Day - 10/29/16 at 10:50 PM 2. Follow up with psychiatry per schedule Current Hospital Diet Patient's current hospital diet: AHA Diet (Heart Healthy) Discharge Diet Recommended Diet: AHA Diet (Heart Healthy), Low Sodium Diet (2gm Na) Pending Studies Studies pending at discharge: no Laboratory Results Lipid Panel Test 10/29/16 05:40 Range/Units Triglycerides Level 104 0-150 mg/dl Cholesterol Level 171 0-200 mg/dl HDL Cholesterol 85 mg/dl Cholesterol/HDL Ratio 2.0 LDL Cholesterol, Calculated 65 mg/dl Medical Emergencies . Who to Call and When: Medical Emergencies: If at any time you feel your situation is an emergency, please call 911 immediately. . Non-Emergent Contact Non-Emergency issues call your: Primary Care Provider . . "Provider Documentation" section prepared by Elidia Day. VTE Core Measure Inpt VTE Proph given/why not?: Jeyson Patten, SCD's
[2016-10-29] MEDS ORDERED: KETO10TA PO (13:19)
[2016-10-29 13:21] VITALS: BP 109/60; PULSE 70; TEMP 36.9; O2SAT 96
--- NOTE | 2016-10-29 13:21 | Discharge Summary ---
Discharge Summary Admission Date: Oct 28, 2016 at 18:19 Discharge Date: Oct 29, 2016 Discharge Disposition: Home Principal Diagnosis: 1. Migraine headache Secondary Diagnoses/Problems: 1. Hyperlipidemia 2. Fibromyalgia 3. Mood disorder 4. Hypothyroidism 5. SLE 6. Tobacco abuse Procedures: Tele monitoring MRI brain CXR CT head Consultations: None Pending Studies/Follow-Up: Instructions / Follow-Up No changes in medications FOLLOW UP 1. Dr Monica Day - 10/29/16 at 10:50 PM 2. Follow up with psychiatry per schedule Medication Reconciliation Changed Medications: Albuterol Hfa (Ventolin Hfa) 200 Puffs/94993 Mcg Aers 2-4 PUFFS INH Q6H PRN for SOB/WHEEZING, #1 INHALER (Medication details modified) Continued Medications: Atenolol (Atenolol) 50 Mg Tab 75 MG PO BID, #30 Atorvastatin (Atorvastatin Calcium) 40 Mg Tab 40 MG PO LUNCH Clonazepam (Klonopin) 1 Mg Tab 1 MG PO TID Cyclobenzaprine HCl (Cyclobenzaprine HCl) 5 Mg Tab 5 MG PO TID PRN for Muscle Spasm Cyclosporine (Ophth) (Restasis) 0.05 % Emu 1 DROP OP BID PRN for DRYNESS Diflunisal (Dolobid) 500 Mg Tab 500 MG PO BID, TAB Lamotrigine (Lamotrigine) 100 Mg Tab 100 MG PO BID Levothyroxine Sodium (Synthroid) 100 Mcg Tab 100 MCG PO QAM Methylphenidate HCl (Methylphenidate HCl) 20 Mg Tab 10 MG PO DAILY, #30 Nicotine (Nicoderm Cq 21MG Patch) 1 Patch Tdsy 1 PATCH TD DAILY, PATCH Nifedipine Ext Rel (Procardia Xl Ext Rel) 30 Mg Tabcr 30 MG PO UD PRN for TAKE IN WINTER MONTHS, 0 Refills TAKE THIS MEDICATION DAILY DURING THE WINTER MONTHS. Omeprazole (Prilosec) 20 Mg Cap 20 MG PO BID Polyethylene Glycol 3350 (Bulk (Polyethylene Glycol 3350) 1 Pow Pow 17 GM PO QAM Prazosin Hcl (Prazosin) 2 Mg Cap 2 MG PO HS Tramadol (Ultram) 50 Mg Tab 50 MG PO Q6H PRN for Pain, 0 Refills Trazodone Hcl (Trazodone) 100 Mg Tab 100 MG PO HS takes one at bedtime and can take additional during the day for pain Admission Information HPI (per Admitting provider): Patient seen and examined. 61 year old female with PMHx of HTN, HLD, fibromyalgia, mood disorder, hypothyroidism, SLE, Hep C, and other problems listed below presents to the ED with multiple complaints for several weeks. Patient reports that her brother about a month ago she states since then she has been having more migraines, these migraines are like a "vice rn new grad" around her skull as well as neck pain. She states her latest migraine began yesterday. She states with these migraines she has trouble finding the right words to speak, she also reports some difficulty speaking. She states this morning she had right sided facial numbness but this has resolved. She states she has also been having 4 weeks of left sided chest pain, that is constant and worsened over this week. She states the chest pain is worse with movement and tender to palpation. She states she has been secretly taking aspirin in case she is having a heart attack or stroke. She reports dyspnea on exertion such as walking up the steps but nothing at rest. She reports constant diarrhea, and an episode of vomiting today. She reports she has been crying a lot and feels like she may have had "a break down" She states she sees a psychiatrist at [facility] and is suppose to start grief therapy. She states she feels generally weak and "run down" she has had multiple falls this week. She states today she was visiting a friend who thought these symptoms sounded like a stroke so she came to the ED. She denies fevers, chills, URI symptoms, dysuria, calf pain and edema. She denies unilateral weakness, vision changes. She denies suicidal and homicidal ideations. She reports she drinks 2 beers at night, and she smokes marijuana which she states she is never going to give up. In the ED VS are stable, Liana are negative x 1, CT head is negative for acute changes. She will be observed for further workup and treatment. Physical Exam (per Admitting): General Appearance: + pertinent finding (WD/WN 61 year old female tearful throughout exam lying in bed in NAD with significant other at bedside ) Head: normocephalic, atraumatic Eyes: PERRL, EOMI, sclerae normal ENT: hearing grossly normal, pharynx normal Neck: supple, no JVD Respiratory/Chest: chest non-tender, lungs clear, normal breath sounds, no respiratory distress, no accessory muscle use Cardiovascular: regular rate, rhythm, no edema, no gallop, no JVD, no murmur , normal peripheral pulses Abdomen/GI: normal bowel sounds, non tender, soft Back: normal inspection, no muscle spasm Extremities/Musculoskelatal: no calf tenderness, normal capillary refill, no pedal edema Neurologic/Psych: alert, oriented x 3, + pertinent finding (tearful throughtout exam, denies suicidal and homicidal ideations, speech slow but clear , no focal deficits noted ) Skin: normal color, warm/dry, no rash Lymphatic: no adenopathy Hospital Course Assessment and Plan 61 year old female presents to the ED complaining of headache, numbness, chest pain, and other symptoms for over a month. Has been depressed due to brother passing away recently. RECURRENT HEADACHE/NUMBNESS : Resolved Likely migraine which has resolved now. Contributing factors: Psychological issues- Fibromyalgia, Depression, anxiety -Work up- CT head negative ; MRI brain- negative for stroke -Toradol PRN for headaches CHEST PAIN -Atypical, likely musculoskeletal -EKG- no acute changes, Trop x 3 negative -No further intervention recommended DIARRHEA -No BM since in hospital -C diff still pending collection MOOD DISORDER - RECENT IN THE FAMILY -denies suicidal and homicidal ideations -continue Lamictal, Ritalin, Klonopin, Trazodone -Psych consult placed - discussed with them- cleared for discharge with follow up with psych outpatient- "grief therapy" recommended GENERALIZED WEAKNESS -Able to ambulate FIBROMYALGIA -continue Flexeril, tramadol prn HLD -continue Statin HTN -stable -continue BB. Procardia HYPOTHYROIDISM -continue Synthroid -check TSH - 0.062 HEPATITIS C -per records SYSTEMIC LUPUS ERYTHEMATOUS -per records TOBACCO ABUSE -Cessation counseling given -Nicotine patch ordered MARIJUANA ABUSE -per patient -Tox screen clean -cessation counseling given DVT PROPHYLAXIS: Sq Lovenox CODE STATUS: FULL CODE DISPO:observation Okay to discharge home Eager to be discharged home Total time spent on discharge = 26 minutes This includes examination of the patient, discharge planning, medication reconciliation, and communication with other providers. Discharge Instructions Reason for Admission: Fall, Headache, Left-Sided Chest Pain Discharge Discharge Diagnosis / Problem: 1. Migraine headache Discharge Goals Goal(s): Diagnostic testing, Therapeutic intervention Activity Recommendations Activity Limitations: resume your previous activity . Instructions / Follow-Up Instructions / Follow-Up No changes in medications FOLLOW UP 1. Dr Monica Day - 10/29/16 at 10:50 PM 2. Follow up with psychiatry per schedule Current Hospital Diet Patient's current hospital diet: AHA Diet (Heart Healthy) Discharge Diet Recommended Diet: AHA Diet (Heart Healthy), Low Sodium Diet (2gm Na) Pending Studies Studies pending at discharge: no Laboratory Results Lipid Panel Test 10/29/16 05:40 Range/Units Triglycerides Level 104 0-150 mg/dl Cholesterol Level 171 0-200 mg/dl HDL Cholesterol 85 mg/dl Cholesterol/HDL Ratio 2.0 LDL Cholesterol, Calculated 65 mg/dl Medical Emergencies . Who to Call and When: Medical Emergencies: If at any time you feel your situation is an emergency, please call 911 immediately. . Non-Emergent Contact Non-Emergency issues call your: Primary Care Provider . . "Provider Documentation" section prepared by Elidia Day. VTE Core Measure Inpt VTE Proph given/why not?: Jeyson Patten, SCD's
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
--- NOTE | 2016-10-29 21:50 | ECHOCARDIOGRAM REPORT ---
*NOTICE TO RECEIVING DEMOCRAT AGENCY This information is strictly Confidential and protected under [place] law. [place] law prohibits you from making any further disclosure of this information unless further disclosure is expressly permitted by the written consent of the person to whom it pertains or is authorized by law. A general authorization for the release of medical or other information is not sufficient for this purpose. Hospital accepts no responsibility if the information is made available to any other person, INCLUDING THE PATIENT. Interpretation Summary * Name: JOSEPH OLIVEIRA Study Date: 10/29/2016 08:05 AM BP: 119/68 mmHg * Patient Location: [facility]\S\N282\S\1 HR: 67 * : 1955 (M/d/yyyy) Gender: Female Height: 66 in * Age: 61 yrs Ethnicity: CA Weight: 159 lb * Ordering Physician: Pretty Santos * Referring Physician: Self, Referred * Performed By: Tila Green RCS * * Reason For Study: CHEST PAIN * BSA: 1.8 m2 * -- Conclusions -- * The left ventricular wall motion is normal. * Left ventricular systolic function is normal. * Ejection Fraction = 65-70%. * There is moderate mitral annular calcification. * Significant mitral regurgitation is absent. * Aortic valve sclerosis mild, without significant aortic valvular stenosis. * Grade I diastolic dysfunction, (abnormal relaxation pattern). * Doppler findings do not suggest pulmonary hypertension. Procedure Details * A complete two-dimensional transthoracic echocardiogram was performed (2D, M-mode, Doppler and color flow Doppler). Left Ventricle * The left ventricle is normal in size. * There is normal left ventricular wall thickness. * Left ventricular systolic function is normal. * Ejection Fraction = 65-70%. * The left ventricular wall motion is normal. Right Ventricle * The right ventricle is normal size. * The right ventricular systolic function is normal as assessed by tricuspid annular plane systolic excursion (TAPSE) (normal >1.5 cm). Atria * The left atrial size is normal. * Right atrial size is normal. * There is no evidence of atrial septal defect, but resolution does not allow assessment for a patent foramen ovale. Mitral Valve * There is moderate mitral annular calcification. * There is no mitral valve stenosis. * Significant mitral regurgitation is absent. Tricuspid Valve * The tricuspid valve is normal. * There is no tricuspid stenosis. * Significant tricuspid regurgitation is absent. * Doppler findings do not suggest pulmonary hypertension. Aortic Valve * The aortic valve is trileaflet. * Aortic valve sclerosis mild, without significant aortic valvular stenosis. * Aortic stenosis is absent. * There is no significant aortic regurgitation. Pulmonic Valve * The pulmonary valve is not well seen, but the Doppler examination is normal without significant regurgitation or stenosis. Great Vessels * The aortic root and proximal ascending aorta are normal sized. Pericardium/Pleural * There is no pericardial effusion. Great Vessels * Normal inferior vena cava diameter and respiratory variation suggests normal central venous pressure. Left Ventricular Diastolic Function * Grade I diastolic dysfunction, (abnormal relaxation pattern). MMode 2D Measurements and Calculations IVSd 1.0 cm IVSs 1.3 cm LVIDd 3.9 cm LVIDs 2.8 cm LVPWd 1.1 cm LVPWs 1.1 cm IVS/LVPW 0.93 FS 27.5 % EDV(Teich) 64.0 ml ESV(Teich) 29.3 ml EF(Teich) 54.1 % EDV(cubed) 57.1 ml ESV(cubed) 21.8 ml EF(cubed) 61.9 % % IVS thick 27.7 % % LVPW thick 2.8 % LV mass(C)d 131.6 grams LV mass(C)dI 72.6 grams/m\S\2 LV mass(C)s 102.5 grams LV mass(C)sI 56.5 grams/m\S\2 SV(Teich) 34.6 ml SI(Teich) 19.1 ml/m\S\2 SV(cubed) 35.3 ml SI(cubed) 19.5 ml/m\S\2 Ao root diam 3.4 cm Ao root area 9.3 cm\S\2 LA dimension 2.4 cm LA/Ao 0.70 LVOT diam 2.0 cm LVOT area 3.1 cm\S\2 LVAd ap4 24.3 cm\S\2 LVLd ap4 7.2 cm EDV(MOD-sp4) 67.5 ml EDV(sp4-el) 69.6 ml LVAs ap4 16.2 cm\S\2 LVLs ap4 5.9 cm ESV(MOD-sp4) 37.3 ml ESV(sp4-el) 37.9 ml EF(MOD-sp4) 44.8 % EF(sp4-el) 45.6 % LVAd ap2 23.1 cm\S\2 LVLd ap2 6.6 cm EDV(MOD-sp2) 68.6 ml EDV(sp2-el) 68.3 ml LVAs ap2 11.8 cm\S\2 LVLs ap2 5.0 cm ESV(MOD-sp2) 22.8 ml ESV(sp2-el) 23.6 ml EF(MOD-sp2) 66.8 % EF(sp2-el) 65.4 % LVLd %diff -9.20 % EDV(MOD-bp) 70.0 ml LVLs %diff -17.08 % ESV(MOD-bp) 31.1 ml EF(MOD-bp) 55.6 % SV(MOD-sp4) 30.2 ml SI(MOD-sp4) 16.7 ml/m\S\2 SV(MOD-sp2) 45.8 ml SI(MOD-sp2) 25.2 ml/m\S\2 SV(MOD-bp) 38.9 ml SI(MOD-bp) 21.5 ml/m\S\2 SV(sp4-el) 31.7 ml SI(sp4-el) 17.5 ml/m\S\2 SV(sp2-el) 44.6 ml SI(sp2-el) 24.6 ml/m\S\2 Doppler Measurements and Calculations MV E max nisha 62.6 cm/sec MV A max nisha 87.3 cm/sec MV E/A 0.72 MV P1/2t max nisha 79.1 cm/sec MV P1/2t 101.1 msec MVA(P1/2t) 2.2 cm\S\2 MV dec slope 229.1 cm/sec\S\2 MV dec time 0.33 sec Ao V2 max 147.7 cm/sec Ao max PG 8.7 mmHg Ao max PG (full) 2.9 mmHg AARON(V,A) 2.6 cm\S\2 AARON(V,D) 2.6 cm\S\2 LV V1 max PG 5.8 mmHg LV V1 max 120.8 cm/sec PA V2 max 119.4 cm/sec PA max PG 5.7 mmHg TR max nisha 220.7 cm/sec
[2016-11-11] MEDS ORDERED: QUET1TAB7 PO (11:43)
[2016-12-11] MEDS ORDERED: NAPR1TAB9 PO (12:13)
== END 2016-10-29 13:35 | disposition home or self-care (01) ==
LOC: ENRESERVTM → ENRESERVDT → EDBD 10:51 → C.EDC 10:52 → C.MED 18:19
PROVIDERS: ADMIT Internal Medicine; ATTEND Internal Medicine
DX: G43.909 Migraine, unspecified, not intractable, without status migrainosus (principal); R07.89 Other chest pain; F31.32 Bipolar disorder, current episode depressed, moderate; M79.7 Fibromyalgia; M32.9 Systemic lupus erythematosus, unspecified; F39 Unspecified mood [affective] disorder; F12.10 Cannabis abuse, uncomplicated; I10 Essential (primary) hypertension; J45.909 Unspecified asthma, uncomplicated; K21.9 Gastro-esophageal reflux disease without esophagitis; E78.5 Hyperlipidemia, unspecified; E03.9 Hypothyroidism, unspecified; B19.20 Unspecified viral hepatitis C without hepatic coma; F17.200 Nicotine dependence, unspecified, uncomplicated; F11.21 Opioid dependence, in remission; Z82.49 Family history of ischemic heart disease and other diseases of the circulatory system; Z90.710 Acquired absence of both cervix and uterus; Z79.899 Other long term (current) drug therapy

== ENCOUNTER 2016-12-23 10:01 | Inpatient (IN) | payer OTHER ==
[2016-12-11 11:49] VITALS: BMI 25.0
--- NOTE | 2016-12-11 12:40 | PAT Medication Instructions ---
Service Date Dec 11, 2016. Current Home Medication List Albuterol Hfa (Ventolin Hfa), 2-4 PUFFS INH Q6H PRN for SOB/WHEEZING Atenolol (Atenolol), 75 MG PO BID Atorvastatin (Atorvastatin Calcium), 40 MG PO LUNCH Clonazepam (Klonopin), 1 MG PO TID Cyclobenzaprine HCl (Cyclobenzaprine HCl), 5 MG PO TID PRN for Muscle Spasm Cyclosporine (Ophth) (Restasis), 1 DROP OP BID PRN for DRYNESS Diflunisal (Dolobid), 500 MG PO BID Lamotrigine (Lamotrigine), 100 MG PO BID Levothyroxine Sodium (Synthroid), 100 MCG PO QAM Methylphenidate HCl (Methylphenidate HCl), 10 MG PO BID Naproxen (Aleve), 500 MG PO BID PRN for Pain Nicotine (Nicoderm Cq 21MG Patch), 1 PATCH TD DAILY Nifedipine Ext Rel (Procardia Xl Ext Rel), 30 MG PO UD PRN for TAKE IN WINTER MONTHS Omeprazole (Prilosec), 20 MG PO BID Polyethylene Glycol 3350 (Bulk (Polyethylene Glycol 3350), 17 GM PO QAM Prazosin Hcl (Prazosin), 2 MG PO HS Quetiapine Fumarate (Seroquel), 25 MG PO BID Tramadol (Ultram), 50 MG PO Q6H PRN for Pain Medication Instructions For Your Scheduled Surgery Diflunisal (Dolobid), 500 MG PO BID (per surgeon instructions) Naproxen (Aleve), 500 MG PO BID PRN for Pain (not taking currently) - Hold the following medications the morning of surgery: Polyethylene Glycol 3350 (Bulk (Polyethylene Glycol 3350), 17 GM PO QAM Nicotine (Nicoderm Cq 21MG Patch), 1 PATCH TD DAILY Methylphenidate HCl (Methylphenidate HCl), 10 MG PO BID Cyclobenzaprine HCl (Cyclobenzaprine HCl), 5 MG PO TID PRN for Muscle Spasm - Take the following medications the morning of surgery with a sip of water: Tramadol (Ultram), 50 MG PO Q6H PRN for Pain (can take up to four hours prior to surgery if needed) Quetiapine Fumarate (Seroquel), 25 MG PO BID Omeprazole (Prilosec), 20 MG PO BID Nifedipine Ext Rel (Procardia Xl Ext Rel), 30 MG PO UD PRN for TAKE IN WINTER MONTHS Levothyroxine Sodium (Synthroid), 100 MCG PO QAM Lamotrigine (Lamotrigine), 100 MG PO BID Cyclosporine (Ophth) (Restasis), 1 DROP OP BID PRN for DRYNESS Clonazepam (Klonopin), 1 MG PO TID Albuterol Hfa (Ventolin Hfa), 2-4 PUFFS INH Q6H PRN for SOB/WHEEZING (bring with you to hospital on day of surgery) Atenolol (Atenolol), 75 MG PO BID - Take the following medications as scheduled the afternoon/night before surgery : Tramadol (Ultram), 50 MG PO Q6H PRN for Pain Quetiapine Fumarate (Seroquel), 25 MG PO BID Prazosin Hcl (Prazosin), 2 MG PO HS Omeprazole (Prilosec), 20 MG PO BID Methylphenidate HCl (Methylphenidate HCl), 10 MG PO BID Lamotrigine (Lamotrigine), 100 MG PO BID Cyclosporine (Ophth) (Restasis), 1 DROP OP BID PRN for DRYNESS Cyclobenzaprine HCl (Cyclobenzaprine HCl), 5 MG PO TID PRN for Muscle Spasm Clonazepam (Klonopin), 1 MG PO TID Atorvastatin (Atorvastatin Calcium), 40 MG PO LUNCH Albuterol Hfa (Ventolin Hfa), 2-4 PUFFS INH Q6H PRN for SOB/WHEEZING Atenolol (Atenolol), 75 MG PO BID If you have any questions please call us at [phone] or [phone] ( Valarie) or [phone]
[2016-12-11 13:05] LABS: URINE APPEARANCE CLEAR (CLEAR); URINE BILIRUBIN NEG (NEG); URINE COLOR YELLOW; URINE NITRITE NEG (NEG); URINE SPECIFIC GRAVITY 1.008 (1.000-1.030); UROBILINOGEN NEG (NEG)
[2016-12-11 13:32] LABS: MANUAL MICROSCOPIC REQUIRED? NO; REVIEW REQ? NO
--- NOTE | 2016-12-20 15:55 | HISTORY & PHYSICAL EXAMINATION ---
DATE OF ADMISSION: 12/23/2016 She is being preoped for lumbar spine surgery, posterior lumbar interbody fusion at L4-L5. HISTORY OF PRESENT ILLNESS: She has long-standing back and lower extremity difficulty incapacitating at times, refractory to conservative measures. PAST MEDICAL HISTORY: Hypertension, high cholesterol. ALLERGIES: Contrast agent, history of asthma, history of underactive thyroid or hypothyroid, fibromyalgia, jaundice, hepatitis C, rheumatoid arthritis, acid reflux. PAST SURGICAL HISTORY: Hysterectomy. ALLERGIES: INCLUDE CODEINE. MEDICATIONS: Numerous including nicotine patch, Ultram, Prilosec, Dolobid, Maxzide, Lipitor, Levoxyl, Tenormin, MiraLax, Ritalin and ProAir. REVIEW OF SYSTEMS: She denies any blurred vision, double vision, tinnitus, vertigo, occasional headaches. Currently does not have any chest pain, angina, shortness of breath. No nausea, vomiting. History of hepatitis C. Denies any current shortness of breath on her questionnaire. Major complaint is musculoskeletal back and lower extremity difficulties. OBJECTIVE: GENERAL: She is 61. She is 5'6, 165 pounds, moderate distress. VITAL SIGNS: Blood pressure 130/80, pulse of 80, respiration rate 16, temperature 97.4. HEAD, EYES, EARS, NOSE, AND THROAT: Pupils react to light and accommodation. Ear, nose and throat clear. BMI 25. CARDIAC: Normal S1, S2, no S3. LUNGS: Clear to auscultation. No rales, rhonchi or wheezing. ABDOMEN: Soft, nontender, bowel sounds present. NEUROLOGIC: Intact. Slight weakness with dorsiflexion of her feet. No upper motor neuron issues, marked decreased range of motion. Significant pain with percussion lumbar spine. Images demonstrate low grade spondylolisthesis, degenerative scoliosis and herniated disc at L4-L5. DISPOSITION: Includes lumbar spine posterior approach, lumbar interbody fusion L4-L5 lumbar spine. MTDD
[~2016-12-23] VITALS: Ht 167.6 cm; Wt 25.7 kg
[2016-12-23] VITALS (8 sets, daily range): BP systolic 103–132; BP diastolic 62–79; PULSE 60–87; TEMP 36.4–37.3; O2SAT 95–100; Ht 167.6 cm; Wt 25.7 kg
[~2016-12-23 10:01] MED LIST changes: +CEFAZOLIN 2000 MG/60 ML D5W 60 ML IV SCH; +LACTATED RINGER'S 1000ML 1,000 ML IV SCH; +NAPR1TAB9 PO; +NCDT21X TD; -NRV/5 PO; +NSS 1000ML IV SCH; +QUET1TAB7 PO; -TRAZ100T29 PO
[2016-12-23] MEDS ORDERED: MIDAZOLAM HCL 1 MG/ML 2ML VIAL ONE ×3 (10:02→15:30)
[2016-12-23] MEDS ORDERED: FENTANYL CITRATE INJ 50 MCG/1 ML 2 ML VIAL ONE (10:02)
[2016-12-23] MEDS ORDERED: ONDANSETRON INJ 2 MG/ML 2 ML VIAL IV PRN ×2 (11:00→15:00)
[2016-12-23] MEDS ORDERED: ALBUT/IPRATROP 3MG/0.5MG NEB 3 ML VIAL INH ONE (11:00)
[2016-12-23] MEDS ORDERED: PHENYLEPHRINE 100MCG/ML 5ML SYR IV PRN (11:00)
[2016-12-23] MEDS ORDERED: ATROPINE SULFATE 0.1 MG/ML 5ML SYR IV PRN (11:00)
[2016-12-23] MEDS ORDERED: EpHEDrine SULFATE INJ 50 MG/ML AMP IV PRN (11:00)
[2016-12-23] MEDS ORDERED: KETAMINE HCL INJ 50 MG/ML 10 ML VIAL ONE (11:07)
[2016-12-23] MEDS ORDERED: BUPIVACAINE/EPINEPHRINE 0.5% MPF 1:200,000 30 ML VIAL ONE (12:25)
[2016-12-23] MEDS ORDERED: GELATIN SPONGE SZ 100 ONE (12:25)
[2016-12-23] MEDS ORDERED: THROMBIN FOR SOLN 20000 UNIT KIT ONE (12:25)
[2016-12-23] MEDS ORDERED: VANCOMYCIN HCL 1000MG/20ML VIAL ONE (12:26)
[2016-12-23] MEDS ORDERED: BACITRACIN 50000 UNIT VIAL ONE (12:26)
--- NOTE | 2016-12-23 12:35 | History & Physical Bridge Note ---
H&P Re-Evaluation Bridge Note: I have examined the patient, reviewed the History & Physical and in the interval since the performance of the History & Physical I have noted the following changes of clinical significance: No changes noted
[2016-12-23] MEDS ORDERED: ONDANSETRON INJ 2 MG/ML 2 ML VIAL ONE (13:16)
[2016-12-23] MEDS ORDERED: LARYING-O-JET KIT (LTA) EXT ONE ×2 (13:16)
[2016-12-23] MEDS ORDERED: LIDOCAINE HCL 2% 2 ML VIAL (20MG/ML) ONE (13:16)
[2016-12-23] MEDS ORDERED: PROPOFOL IV EMULSION 10 MG/ML 20 ML VIAL IV ONE (13:16)
[2016-12-23] MEDS ORDERED: NEOSTIGMINE METHYLSULFATE 5 MG/5 ML SYR ONE (13:16)
[2016-12-23] MEDS ORDERED: GLYCOPYRROLATE INJ 0.2 MG/ML VIAL ONE (13:16)
[2016-12-23] MEDS ORDERED: HYDROmorphone INJ 2 MG/ML SYR/VIAL ONE (13:16)
[2016-12-23] MEDS ORDERED: ROCURONIUM BROMIDE 10 MG/ML 5 ML VIAL ONE (13:16)
[2016-12-23] MEDS ORDERED: DEXAMETHASONE SOD INJ 4 MG/ML VIAL ONE (13:16)
[2016-12-23] MEDS ORDERED: EpHEDrine SULFATE 50MG/5ML SYR ONE (13:36)
--- NOTE | 2016-12-23 14:42 | DIAGNOSTIC IMAGING REPORT ---
LUMBAR SPINE, INTRAOPERATIVE FLUOROSCOPY HISTORY: L4-5 posterior decompression and fusion. FLUOROSCOPY TIME: 3.7 seconds. FINDINGS: Intraoperative fluoroscopy was provided for the lumbar spine. A single fluoroscopic spot image demonstrates posterior decompression and fusion at L4-L5 with pedicle screws and rods. The hardware appears intact. IMPRESSION: Fluoroscopy provided for a L4-5 posterior decompression and fusion. Electronically signed by: Dawood Harvey M.D. 12/23/2016 2:40 PM Dictated Date/Time: 12/23/2016 2:38 PM
[2016-12-23] MEDS ORDERED: SODIUM CHLORIDE 0.9% 1000ML 1,000 ML IV SCH (14:54)
--- NOTE | 2016-12-23 14:58 | [facility] Post Operative Brief Note ---
Immediate Operative Summary Operative Date Dec 23, 2016. Pre-Operative Diagnosis low grade spondylolisthesis; degenerative scoliosis; herniated disc at L4-5 Post-Operative Diagnosis low grade spondylolisthesis; degenerative scoliosis; herniated disc at L4-5 Procedure(s) Performed L4-L5 Posterior Lumbar Interbody Fusion Surgeon Dr. Abdulkadir Owens [employer] Surgeon(s) Earnest Epstein PA-C Estimated Blood Loss 200ML Findings disc herniation and listhesis Specimens none per surgeon Dr. Abdulkadir Owens Disposition Recovery Room / PACU
[2016-12-23] MEDS: HYDROmorphone INJ 2 MG/ML SYR/VIAL IV PRN ×6 (14:59→15:22)
[2016-12-23] MEDS ORDERED: PROMETHAZINE HCL INJ 12.5 MG in SODIUM CHLORIDE 0.9% 50ML 50 ML IV PRN (15:00)
[2016-12-23] MEDS ORDERED: NIFEdipine 30 MG CR TAB PO PRN (15:00)
[2016-12-23] MEDS ORDERED: ACETAMINOPHEN 325 MG TAB PO PRN (15:00)
[2016-12-23] MEDS ORDERED: LORAZEPAM INJ 1 MG in SYRINGE 0.5 ML IV PRN ×2 (15:00→15:45)
[2016-12-23] MEDS ORDERED: CYCLOBENZAPRINE HCL 5 MG TAB PO PRN (15:00)
[2016-12-23] MEDS ORDERED: METOCLOPRAMIDE HCL INJ 5 MG/ML 2 ML VIAL IV PRN (15:00)
[2016-12-23] MEDS ORDERED: MAGNESIUM HYDROXIDE SUSP 30 ML UDC PO PRN (15:00)
[2016-12-23] MEDS ORDERED: LORAZEPAM 1 MG TAB PO PRN (15:00)
[2016-12-23] MEDS ORDERED: NALOXONE HCL 0.4 MG/1 ML VIAL/CARP IV PRN (15:00)
[2016-12-23] MEDS ORDERED: HYDROmorphone HCL 0.5MG/ML 50 ML CASSETTE ONE (15:12)
--- NOTE | 2016-12-23 15:19 | Anesthesiology Progress Note ---
Anesthesia Post Op Note Date & Time Dec 23, 2016 at 15:19 Vital Signs Pain Intensity: 5 Vital Signs Past 12 Hours Date Time Temp Pulse Resp B/P Pulse Ox O2 Delivery O2 Flow Rate FiO2 12/23/16 15:15 63 23 144/63 100 12/23/16 15:15 63 23 12/23/16 15:10 63 16 100 12/23/16 15:10 63 16 12/23/16 15:05 65 19 100 12/23/16 15:05 64 19 12/23/16 15:01 147/95 12/23/16 15:00 65 27 12/23/16 15:00 65 27 100 12/23/16 14:55 36.2 65 14 147/105 96 Mask 10 12/23/16 14:55 65 13 147/105 91 12/23/16 14:55 65 13 12/23/16 11:33 78 18 97 Room Air 12/23/16 10:15 37.3 60 20 131/71 95 Room Air Notes Mental Status: alert / awake / arousable, participated in evaluation Pt Amnestic to Procedure: Yes Nausea / Vomiting: adequately controlled Pain: adequately controlled Airway Patency, RR, SpO2: stable & adequate BP & HR: stable & adequate Hydration State: stable & adequate Anesthetic Complications: no major complications apparent
[2016-12-23] MEDS: HYDROmorphone HCL 0.5MG/ML 50 ML CASSETTE IV PRN ×2 (15:35→22:46)
[2016-12-23] MEDS: SODIUM CHLORIDE 0.9% 1000ML 1,000 ML IV SCH (17:17)
--- NOTE | 2016-12-23 18:38 | OPERATIVE REPORT ---
DATE OF OPERATION: 12/23/2016 PREOPERATIVE DIAGNOSIS: Spondyolisthesis and herniation, lumbar spine L4-L5. POSTOPERATIVE DIAGNOSIS: Same. PROCEDURES: Included a posterior approach lumbar spine decompression laminectomy, foraminotomy, partial facetectomy and PLIF procedure, posterior lumbar interbody fusion at L4-L5. SURGEON: Dr. Owens. BROOCH [employer]KER NOVELTY: Earnest Epstein PA-C. FINDINGS OF SURGERY: Spondylolisthesis with completely incompetent facet joints. DESCRIPTION OF PROCEDURE: The patient was taken to the operating room, a general intubated anesthetic provided to the patient, placed prone, scrubbed, prepped and draped sterile. We made a skin incision lumbar spine L4-L5, dissecting the soft tissue in the same plane out over the transverse processes, putting in a deep self-retaining retractor. We decompressed the neural elements at L4-5. We took out the facet joints bilaterally. There was very delicate decompression. We preserved all neurological elements. We had no vascular injury. We then instrumented the spine, safely getting pedicle screws in 4 and 5 bilaterally anatomically placed with C-arm guidance, thereby the [employer]. We then retracted the dura on the left and right hand side, did a complete discectomy at L4-L5 of the lumbar spine. We then prepared the interspace for L4-L5 interbody fusion. This was packed with a cage from the [employer] [facility] [employer] as well, 22 mm in length, 10 mm in height and 10 mm in width. This was also preceded by packing the disc interval with a bone graft. We irrigated. We then grafted out over the transverse processes. Closed fascia to fascia with #1 Vicryl suture over vancomycin powder and over a Hemovac drain, 2-0 Vicryl closed in the subcuticular layer, 3-0 nylon on the skin, sterile dressing applied. The patient returned to PACU improved, stable. There were no apparent intraoperative complications. I attest to the content of the Intraoperative Record and any orders documented therein. Any exceptio ns are noted below.
--- NOTE | 2016-12-23 19:38 | Medical Consult ---
Consultation Date of Consultation: Dec 23, 2016 @ 19:10 . Attending Physician: Abdulkadir Owens DO . Reason for Consultation: medical management . History of Present Illness 61 YO female followed by Dr. Monica Day for Internal Medicine. History of hypertension, SLE, hepatitis C, and other problems noted below. Posterior lumbar interbody fusion L4-[address] Owens. Doing well postoperatively. No chest pain. No cough or dyspnea. No nausea or vomiting. Has Stout cath postop. Postop pain fairly well-controlled. . 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 Status: Chronic (3) Common Migraine W/O Intractable Migraine Status: Chronic (4) Esophageal Reflux Status: Chronic (5) Fibromyalgia Status: Chronic (6) Fibromyalgia Status: Chronic (7) Hepatitis C Permanent Comment: treated with anti-viral therapy Status: Chronic (8) Hepatitis C Carrier Status: Chronic (9) HLD (hyperlipidemia) Status: Chronic (10) HTN (hypertension) Status: Chronic (11) Hyperlipidemia Nec/Nos Status: Chronic (12) Hypertension Nos Status: Chronic (13) Hypothyroidism Status: Chronic (14) Hypothyroidism Nos Status: Chronic (15) Irritable Bowel Syndrome Status: Chronic (16) Marijuana abuse Status: Chronic (17) Migraine Status: Chronic (18) Mood disorder Status: Chronic (19) Myalgia And Myositis Nos Status: Chronic (20) Opioid Dependence-Remiss Status: Chronic (21) SLE (systemic lupus erythematosus) Status: Chronic (22) Spondylolisthesis, lumbar region Status: Chronic (23) Syst Lupus Erythematosis Status: Chronic (24) Tobacco abuse Status: Chronic (25) Ulcerative colitis Status: Chronic Surgical Problems: (1) H/O colonoscopy Status: Chronic (2) H/O total hysterectomy Status: Chronic (3) H/O: hysterectomy Status: Chronic (4) History of esophagogastroduodenoscopy (EGD) Status: Chronic . Family History Diabetes mellitus Heart disease Hypertension Stroke Social History Smoking Status: Current Every Day Smoker Alcohol Use: occasionally Drug Use: none Marital Status: Housing Status: lives with family Occupation Status: disabled Allergies Coded Allergies: Codeine (Verified Allergy, Severe, HIVES, GENERALIZED SWELLING, AND NAUSEA , 4/17/17) Pregabalin (Verified Allergy, Severe, ANAPHYLAXIS, 12/23/16) Iodinated Diagnostic Agents (Verified Adverse Reaction, Intermediate, headache, 12/23/16) Home Medications Reported Home Medications Medications Dose Route/Sig Max Daily Dose Days Date Category Dose Instructions Aleve (Naproxen) 220 Mg Tab 500 Mg PO BID PRN 12/11/16 Reported Seroquel (Quetiapine Fumarate) 25 Mg Tab 25 Mg PO BID 11/11/16 Reported Ventolin Hfa (Albuterol) 200 Puffs/77271 Mcg Aers 2-4 Puffs INH Q6H PRN 10/29/16 Rx Atenolol 50 Mg Tab 75 Mg PO BID 10/28/16 Rx Nicoderm Cq 21MG Patch (Nicotine) 1 Patch Tdsy 1 Patch TD DAILY 10/28/16 Reported Methylphenidate HCl 20 Mg Tab 10 Mg PO BID 10/21/16 Reported TAKES IN MORNING AND AT NOON Restasis (Cyclosporine (Ophth)) 0.05 % Emu 1 Drop OP BID PRN 06/04/16 Reported Dolobid (Diflunisal) 500 Mg Tab 500 Mg PO BID 06/03/16 Reported Synthroid (Levothyroxine Sodium) 100 Mcg Tab 100 Mcg PO QAM 06/03/16 Reported Atorvastatin Calcium (Atorvastatin) 40 Mg Tab 40 Mg PO LUNCH 02/13/15 Reported Prilosec (Omeprazole) 20 Mg Cap 20 Mg PO BID 02/13/15 Reported Cyclobenzaprine HCl 5 Mg Tab 5 Mg PO TID PRN 02/13/15 Reported Klonopin (Clonazepam) 1 Mg Tab 1 Mg PO TID 02/13/15 Reported Lamotrigine 100 Mg Tab 100 Mg PO BID 02/13/15 Reported Polyethylene Glycol 3350 (Polyethylene Glycol 3350 (Bulk) 1 Pow Pow 17 Gm PO QAM 02/13/15 Reported Prazosin (Prazosin Hcl) 2 Mg Cap 2 Mg PO HS 08/07/14 Reported Procardia Xl Ext Rel (Nifedipine) 30 Mg Tabcr 30 Mg PO UD PRN 07/13/11 Reported TAKE THIS MEDICATION DAILY DURING THE WINTER MONTHS. Ultram (Tramadol HCl) 50 Mg Tab 50 Mg PO Q6H PRN 05/28/11 Reported Current Inpatient Medications Current Inpatient Medications Medications (Trade) Dose Ordered Sig/Nidhi Route Start Time Stop Time Status Last Admin Dose Admin Sodium Chloride 1,000 ml @ 15 mls/hr Q24H IV 12/23/16 06:00 12/24/16 05:59 Lactated Ringer's (Lr 1000ml) 1,000 ml @ 15 mls/hr Q24H IV 12/23/16 06:00 12/24/16 05:59 Diphenhydramine HCl (Benadryl Cap) 25 mg Q6H PRN PO 12/23/16 15:00 01/22/17 14:59 Magnesium Hydroxide (Milk Of Magnesia Susp) 30 ml DAILY PRN PO 12/23/16 15:00 01/22/17 14:59 Bisacodyl (Dulcolax Supp) 10 mg DAILY PRN [place] 12/24/16 06:00 01/23/17 05:59 Bisacodyl (Dulcolax Tab) 5 mg DAILY PRN PO 12/24/16 06:00 01/23/17 05:59 Polyethylene 17 gm 17 gm DAILY PO 12/24/16 09:00 01/23/17 08:59 Lorazepam/Syringe (Ativan Inj/ Syringe) 1 ml @ 1 mls/min Q6H PRN IV 12/23/16 15:00 01/22/17 14:59 Lorazepam (Ativan Tab) 1 mg Q6H PRN PO 12/23/16 15:00 01/22/17 14:59 Metoclopramide HCl (Reglan Inj) 10 mg Q6H PRN IV 12/23/16 15:00 01/22/17 14:59 Ondansetron HCl 4 mg 4 mg Q6H PRN IV 12/23/16 15:00 01/22/17 14:59 Promethazine HCl/ Sodium Chloride (Phenergan Inj/ Nss 50ml) 50.5 ml @ 202 mls/hr Q6H PRN IV 12/23/16 15:00 01/22/17 14:59 Hydromorphone HCl (Dilaudid Inj) 1.5 mg Q3H PRN IV 12/24/16 08:00 01/07/17 07:59 Oxycodone/ Acetaminophen (Percocet 5-325mg Tab) 2 tab Q4H PRN PO 12/24/16 08:00 01/07/17 07:59 Hydromorphone HCl (Dilaudid Inj) 1 mg Q3H PRN IV 12/24/16 08:00 01/07/17 07:59 Oxycodone/ Acetaminophen (Percocet 5-325mg Tab) 1 tab Q4H PRN PO 12/24/16 08:00 01/07/17 07:59 Miscellaneous Information (Discontinue FREEZER PERSON) 1 ea TODAY@0800 N/A 12/24/16 08:00 12/24/16 08:01 Acetaminophen 650 mg 650 mg Q6H PRN PO 12/23/16 15:00 01/22/17 14:59 Cefazolin Sodium 1000 mg/Dextrose 55 ml @ 100 mls/hr Q8H IV 12/23/16 20:00 12/24/16 12:32 Dexamethasone Sodium Phosphate 10 mg/Syringe 2.5 ml @ 1 mls/min Q8H IV 12/23/16 22:00 12/25/16 06:03 Sodium Chloride (Nss 1000ml) 1,000 ml @ 80 mls/hr [id number] IV 12/23/16 14:54 01/22/17 14:53 12/23/16 17:17 80 MLS/HR Atenolol (Tenormin Tab) 75 mg BID PO 12/23/16 21:00 01/22/17 20:59 Atorvastatin Calcium (Lipitor Tab) 40 mg DAILY@1200 PO 12/24/16 12:00 01/23/17 11:59 Clonazepam (Klonopin Tab) 1 mg TID PO 12/23/16 21:00 01/22/17 20:59 Cyclobenzaprine HCl (Flexeril Tab) 5 mg TID PRN PO 12/23/16 15:00 01/22/17 14:59 Diflunisal (Dolobid Tab) 500 mg BID PO 12/23/16 21:00 01/22/17 20:59 Lamotrigine (Lamictal Tab) 100 mg BID PO 12/23/16 21:00 01/22/17 20:59 Levothyroxine Sodium (Synthroid Tab) 100 mcg DAILYBB PO 12/24/16 06:00 01/23/17 05:59 Methylphenidate HCl (Ritalin Tab) 10 mg BID@0800,1200 PO 12/24/16 08:00 01/07/17 07:59 Nicotine (Nicoderm Cq 21MG Patch) 1 patch DAILY TD 12/24/16 09:00 01/23/17 08:59 Quetiapine Fumarate (seroQUEL TAB) 25 mg BID PO 12/23/16 21:00 01/22/17 20:59 Miscellaneous Information (Order Awaiting Action) 1 ea QS N/A 12/24/16 00:00 01/23/17 00:00 Pantoprazole Sodium (Protonix Tab) 40 mg BID PO 12/23/16 21:00 01/22/17 20:59 Prazosin HCl (Prazosin) 2 mg HS PO 12/23/16 21:00 01/22/17 20:59 Naloxone HCl (Narcan Inj) 0.1 mg Q5M PRN IV 12/23/16 15:00 12/24/16 08:00 Hydromorphone HCl 25 mg 25 mg PRN PRN IV 12/23/16 15:00 12/24/16 08:00 12/23/16 15:35 25 MG Sodium Chloride 1,000 ml @ 15 mls/hr Q24H IV 12/23/16 14:54 12/24/16 08:00 12/23/16 16:33 15 MLS/HR Lorazepam/Syringe (Ativan Inj/ Syringe) 1 ml @ 0.5 mls/min Q6HWA PRN IV 12/23/16 15:45 01/22/17 15:44 Review of Systems Constitutional: + sweats (night sweats for about a year), No fever, No weight loss Respiratory: No cough, No shortness of breath Cardiovascular: No chest pain Abdomen: No GI bleeding, No nausea, No vomiting Musculoskeletal: + joint pain (low back pain), + muscle pain (fibromyalgia) Genitourinary - Female: + problem reported (Stout cath postop), No dysuria Physical Exam Date Time Temp Pulse Resp B/P Pulse Ox O2 Delivery O2 Flow Rate FiO2 12/23/16 19:08 36.4 62 16 120/77 100 Nasal Cannula 4.0 12/23/16 18:10 36.9 72 16 120/79 98 Nasal Cannula 4.0 12/23/16 17:10 36.4 69 16 108/62 100 Nasal Cannula 4.0 4/17/17 16:40 36.6 65 16 106/70 100 Nasal Cannula 4.0 /17/17 16:01 117/87 4/17/17 15:57 66 13 91 4/17/17 15:57 66 13 4/17/17 15:56 126/84 4/17/17 15:52 59 16 90 4/17/17 15:52 60 16 4/17/17 15:51 149/106 4/17/17 15:47 55 12 4/17/17 15:47 55 12 157/92 97 4/17/17 15:46 161/100 4/17/17 15:43 149/99 4/17/17 15:42 54 15 4/17/17 15:42 54 15 100 /17/17 15:41 152/111 /17/17 15:38 36.6 57 18 134/86 100 Nasal Cannula 4 17/17 15:37 52 12 100 /17/17 15:37 51 12 /17/17 15:36 58 27 100 /17/17 15:36 59 27 /17/17 15:31 55 19 4/17/17 15:31 55 19 134/86 100 4/17/17 15:29 160/76 4/17/17 15:27 184/117 4/17/17 15:26 61 29 4/17/17 15:26 60 29 95 4/17/17 15:22 130/95 4/17/17 15:21 61 17 100 4/17/17 15:21 62 17 4/17/17 15:16 60 26 100 4/17/17 15:16 60 26 4/17/17 15:15 63 23 144/63 100 4/17/17 15:15 63 23 4/17/17 15:10 63 16 100 4/17/17 15:10 63 16 4/17/17 15:05 65 19 100 4/17/17 15:05 64 19 4/17/17 15:01 147/95 4/17/17 15:00 65 27 4/17/17 15:00 65 27 100 4/17/17 14:55 36.2 65 14 147/105 96 Mask 10 17/17 14:55 65 13 147/105 91 4/17/17 14:55 65 13 /17/17 11:33 78 18 97 Room Air 4/17/17 10:15 37.3 60 20 131/71 95 Room Air General Appearance: WD/WN, no apparent distress Head: normocephalic, atraumatic Eyes: PERRL, EOMI, sclerae normal ENT: normal ENT inspection, hearing grossly normal Neck: supple, no adenopathy, thyroid normal, no JVD, trachea midline Respiratory/Chest: lungs clear, no respiratory distress, no accessory muscle use Cardiovascular: regular rate, rhythm, no edema, no JVD Abdomen/GI: normal bowel sounds, non tender, soft, no organomegaly Genitourinary - Female: + pertinent finding (Stout cath draining clear urine) Extremities/Musculoskelatal: no calf tenderness, + pertinent finding (SCD's applied) Neurologic/Psych: pickle pumper II-XII nml as tested (PERRL, EOMI), alert, oriented x 3 Skin: normal color, warm/dry, no rash Lymphatic: no adenopathy (no cervical adenopathy) Assessment & Plan S/P POSTERIOR LUMBAR FUSION Doing well postoperatively. HYPERTENSION BP 120/79 postop. Continue atenolol and nifedipine. HISTORY OF HEPATITIS C [place] [facility] HYPOTHYROIDISM Continue levothyroxine. NIGHT SWEATS Patient reports night sweats for about 1 year. No associated fever, cough, wt loss. S/P hysterectomy several years ago. History of hepatitis C, s/p antiviral therapy [place] [facility] and apparently cured. Recent chest x-rays have demonstrated pulmonary cysts and small pulmonary nodule. Recent CT's abdomen and pelvis have not demonstrated any apparent pathologic adenopathy or other significant pathology. Some of patients medications are associated with night sweats- amlodipine, tramadol, trazodone. Outpatient follow-up recommended. VTE PROPHYLAXIS Per Ortho protocol. Thank you for this consultation. We will follow the patient with you during their hospital stay. Dr. Barrios will be rounding during day shift starting 12/24. You can reach a member of the [facility] Hospitalist Team 31/03 via pager @ [phone]. You can reach me via cell @ [phone]. . Additional Copies To Monica Day M.D.
[2016-12-23] MEDS: CEFAZOLIN IV 1,000 MG in DEXTROSE 5% 50ML 50 ML IV SCH (19:53)
[2016-12-23] MEDS ORDERED: PRAZOSIN HCL 1 MG CAP PO SCH (21:00)
[2016-12-23] MEDS: CLONAZEPAM 1 MG TAB PO SCH (21:21)
[2016-12-23] MEDS: PANTOprazole SOD 40 MG TAB PO SCH (21:22)
[2016-12-23] MEDS: QUETIAPINE FUMARATE 25 MG TAB PO SCH (21:23)
[2016-12-23] MEDS: DEXAMETHASONE INJ 10 MG in SYRINGE 0 ML IV SCH (21:25)
[2016-12-23] MEDS: DIFLUNISAL 500 MG TAB PO SCH (21:29)
[2016-12-23] MEDS: RESTASIS - ORDER AWAITING ACTION SCH (23:51)
[2016-12-24] VITALS (7 sets, daily range): BP systolic 99–117; BP diastolic 64–72; PULSE 67–82; TEMP 36.4–37.1; O2SAT 96–99
[2016-12-24] MEDS: CEFAZOLIN IV 1,000 MG in DEXTROSE 5% 50ML 50 ML IV SCH ×2 (03:33→12:30)
[2016-12-24] MEDS: SODIUM CHLORIDE 0.9% 1000ML 1,000 ML IV SCH (03:34)
[2016-12-24] MEDS: DEXAMETHASONE INJ 10 MG in SYRINGE 0 ML IV SCH ×2 (05:31→14:42)
[2016-12-24] MEDS ORDERED: BISACODYL 10 MG SUPP PR PRN (06:00)
[2016-12-24] MEDS ORDERED: BISACODYL 5 MG TABEC PO PRN (06:00)
[2016-12-24] MEDS ORDERED: LEVOTHYROXINE 100 MCG TAB PO SCH (06:00)
[2016-12-24 06:03] LABS: HEMATOCRIT 33.5 % (37-47)
[2016-12-24] MEDS: HYDROmorphone HCL 0.5MG/ML 50 ML CASSETTE IV PRN (06:59)
[2016-12-24] MEDS ORDERED: DC PCA SCH (08:00)
[2016-12-24] MEDS ORDERED: HYDROmorphone INJ 2 MG/ML SYR/VIAL IV PRN (08:00)
[2016-12-24] MEDS ORDERED: OXYCODONE/ACETAMINOPHEN 5-325 TAB PO PRN (08:00)
[2016-12-24] MEDS ORDERED: HYDROmorphone INJ 1 MG/ML SYR IV PRN (08:00)
--- NOTE | 2016-12-24 08:10 | Anesthesiology Progress Note ---
Anesthesia Post Op Note Date & Time Dec 24, 2016 at 08:07 Vital Signs Pain Intensity: 7.0 Vital Signs Past 12 Hours Date Time Temp Pulse Resp B/P Pulse Ox O2 Delivery O2 Flow Rate FiO2 12/24/16 07:18 36.4 67 16 99/64 99 2.0 12/24/16 05:26 98 Nasal Cannula 2.0 12/24/16 02:49 36.8 74 16 105/65 99 Nasal Cannula 4.0 12/23/16 23:48 Nasal Cannula 4.0 12/23/16 22:54 36.5 87 16 132/78 100 Nasal Cannula 4.0 Notes Mental Status: alert / awake / arousable, participated in evaluation Pt Amnestic to Procedure: Yes Nausea / Vomiting: improving with treatment Pain: improving with treatment Airway Patency, RR, SpO2: stable & adequate BP & HR: stable & adequate Hydration State: stable & adequate Anesthetic Complications: no major complications apparent
[2016-12-24] MEDS: CLONAZEPAM 1 MG TAB PO SCH ×2 (08:42→14:42)
[2016-12-24] MEDS: PANTOprazole SOD 40 MG TAB PO SCH (08:43)
[2016-12-24] MEDS: OXYCODONE/ACETAMINOPHEN 5-325 TAB PO PRN ×3 (08:43→16:58)
[2016-12-24] MEDS: QUETIAPINE FUMARATE 25 MG TAB PO SCH (08:43)
[2016-12-24] MEDS: DIFLUNISAL 500 MG TAB PO SCH (08:43)
[2016-12-24] MEDS: RESTASIS - ORDER AWAITING ACTION SCH ×2 (08:45→15:39)
[2016-12-24] MEDS: METHYLPHENIDATE HCL 10 MG TAB PO SCH ×2 (08:54→12:31)
[2016-12-24] MEDS ORDERED: NICOTINE 21 MG/24 HR TDSY TD SCH (09:00)
[2016-12-24] MEDS ORDERED: POLYETHYLENE GLYCOL PO SCH (09:00)
[2016-12-24] MEDS ORDERED: POLYETHYLENE (MIRALAX) 17 GM PACK PO SCH (09:00)
[2016-12-24] MEDS ORDERED: ATORVASTATIN 40 MG TAB PO SCH (12:00)
--- NOTE | 2016-12-24 13:00 | Discharge Instructions ---
Discharge Instructions Date of Service Dec 24, 2016. Admission Reason for Admission: Lumbar Spinal Stenosis, Sponydlolisthesis Discharge Discharge Diagnosis / Problem: same Discharge Goals Goal(s): Decrease discomfort, Improve function Activity Recommendations Activity Limitations: as noted below Lifting Limitations: until after follow-up appointment Exercise/Sports Limitations: until after follow-up appointment May Resume Sexual Activity: after follow-up appointment Shower/Bathe: keep incision dry Driving or Machine Use: be very , very careful. . Instructions / Follow-Up Instructions / Follow-Up MEDICATIONS: Please take your prescriptions as instructed at your pre-op appointment. SPECIAL CARE: The following information is intended to answer some of the common questions and concerns regarding your surgery. Each patient is an individual and receives individual counselling throughout the course of treatment, from diagnosis to surgery all the way through recovery. What follows is not an exhaustive list, but should be a useful guide to some of the common questions and concerns patients have regarding their surgeries. These are not provided to keep you from calling us; rather, they give you something accurate and concrete to reference as you recover from your procedure. If you need us, we are available to you. As always, if you are not sure about something, call us at [phone]. MEDICAL EMERGENCIES: For these conditions, call 911 or go to your local hospital-based Emergency Department - not [facility] or equivalent. * Paralysis * Severe chest pain or difficulty breathing * Swelling or redness of either leg Spine procedures can be rather complex and though complications are rare, they do occur. In such cases, effective advice regarding emergency situations cannot always be addressed over the telephone. You may be referred to the emergency department for more effective management of your problem. Activity Limitations: It is important to give your body time to heal, so please limit your activities : * In general, don't do anything that moves your spine too much. You should avoid contact sports, twisting or heavy lifting while you recover. * 5-10 pounds is all you should attempt to lift. * You should not plan on driving for approximately 3 weeks and you should avoid traveling more than 30-45 minutes at a time. Longer trips should be broken down with walking breaks spaced appropriately. * Physical therapy is not usually required. * Walking and good posture practices will help you recover and regain your function. * Avoid straining or sudden changes in position. * In general, the goal is to take it easy and recover. Don't cause any new problems. Just relax. Showers: * Do not take a bath, use a Jacuzzi or hot tub or otherwise submerge your incision. * It is usually safe to take a shower 4-5 days after your surgery. * Your incision does not require any special creams or ointments. * Simply clean it with soap and water, dry and re-dress with a clean bandage afterwards. Incision: * Keep incision clean, dry and protected until your first follow-up appointment. * Some amount of drainage and redness is normal. Any drainage should be fairly clear and not have a foul odor. * If you feel anything is wrong or you have excessive drainage, please call us. * Your stitches and art will be removed 10-14 days after your surgery. At the time of your first post-op visit. * Neck surgeries are typically closed with a suture underneath the skin. The steri-strips over the incision should be maintained until we see you in the office. Bracing: * You may be provided with a back or neck brace to encourage good posture and prevent injury. It will remind you not to do too much as you heal and will alert others to the fact that you have had a surgery. * Back braces may be removed for showers and when you are resting at home. They must be worn when you are walking around for any period of time or for travel. * For neck surgery, you will likely be provided with two cervical collars. The soft collar ([place] or foam rubber) is worn most commonly throughout the day and while sleeping. The plastic collar (provided at the hospital) is for showering/bathing. * Except while eating, collars should remain in place. More specifically, bracing is provided for a purpose and should be worn. * Please obtain your brace or collars prior to your operation and bring them to the hospital with you on the day of surgery. * You should also bring your collars to your post-op appointment with Dr. Owens. You should always take good care of your body and practice healthy habits, especially following surgery. You should: * Follow your doctor's treatment plan * Sit and stand properly with good posture (ears over shoulders, shoulders over hips) Don't slouch * Learn to lift correctly * Exercise regularly (low-impact aerobic exercise is especially good, but check with your doctor first) * Generally, be up and walking for 5-10 minutes at a time at least 3-4 times per day from the day you get home * Increasing walking to tolerance until you can walk for 20-30 minutes at a time * Attain and maintain a healthy body weight * Eat healthy foods ( a well-balanced, low-fat diet rich in fruits and vegetables) and get enough calcium * Avoid excessive use of alcohol When to call our office - If you notice any of the following: * Increased pain not relieve by pain medicine * Fevers greater then 100 degrees F, chills or flu symptoms * Increased redness around incision * Drainage from the incision that is not clear * Any foul smelling drainage * Swelling or fluid collection beneath the skin Miscellaneous: * In the hospital, you may be given a walker or cane for support while walking. These are temporary needs and are intended to prevent injuries due to falls. You may discontinue them when you feel strong and steady enough on your feet. * Sleep in a comfortable position. We find that many patients find a lounge chair or recliner with several pillows to be beneficial in the early post-operative period. * The support stockings should be used for 7-10 days and may be discontinued when you are back to walking more and conducting usual household activities. No problem is insignificant. We are here to help you and get you well. Contact us at [phone]. Definitions: Foraminotomy: If part of the disc or a bone spur (osteophyte) is pressing on a nerve as it leaves the vertebra (through an exit called the foramen), a foraminotomy may be done. Otomy means "to make an opening." A foraminotomy is making the opening of the foramen larger, so the nerve can exit without being compressed. Laminotomy: Similar to the foraminotomy, a laminotomy makes a larger opening, this time in your bony plate protecting your spinal canal and spinal cord (the lamina). The lamina may be pressing on your nerve, so the surgeon may make more room for the nerves using a laminotomy. Laminectomy: Sometimes, a laminotomy is not sufficient. The surgeon may need to remove all or part of the lamina. This procedure is called a laminectomy. This can often be done at many levels without any harmful effects. Current Hospital Diet Patient's current hospital diet: Regular Diet Discharge Diet Recommended Diet: Regular Diet Procedures Procedures Performed: L4-L5 Posterior Lumbar Interbody Fusion Pending Studies Studies pending at discharge: no Laboratory Results Lipid Panel Test 10/29/16 05:40 Range/Units Triglycerides Level 104 0-150 mg/dl Cholesterol Level 171 0-200 mg/dl HDL Cholesterol 85 mg/dl Cholesterol/HDL Ratio 2.0 LDL Cholesterol, Calculated 65 mg/dl Medical Emergencies . Who to Call and When: Medical Emergencies: If at any time you feel your situation is an emergency, please call 911 immediately. . Non-Emergent Contact Non-Emergency issues call your: Surgeon Call Non-Emergent contact if: your pain is unusual for you, you have any medication questions . "Provider Documentation" section prepared by Abdulkadir Owens. VTE Core Measure Inpt VTE Proph given/why not?: Treatment not indicated
--- NOTE | 2016-12-24 13:50 | DISCHARGE SUMMARY ---
DATE OF DISCHARGE: 12/24/2016. SUBJECTIVE: Mild complaints of pain, no shortness breath, chest pain and confusion. OBJECTIVE: Vital signs stable, afebrile. Wound clean. ASSESSMENT: Status post lumbar spine decompression and fusion for posterior lumbar interbody fusion, posterior lumbar interbody fusion 4-5 lumbar. DISPOSITION: We will get her dressing changed. Will get her home later on this evening. Instruction precautions given in the office. Instructions, precautions given here at the hospital. She must be very careful with bending, stooping, lifting. Her wound should be kept clean and dry and protected for the next 2 weeks. We will see her back in the office in 2 weeks. She is to call if any problems should arise.
[2016-12-24] MEDS ORDERED: NURSING VERBAL MED ORDER ONE (14:45)
--- NOTE | 2016-12-24 16:29 | DISCHARGE SUMMARY ---
DATE OF DISCHARGE: 12/24/2016. SUBJECTIVE: She is alert, oriented, stable. No confusion. No chest pain. OBJECTIVE: Vital signs stable. Temperature 36.4. Wound protected, reported as clean. ASSESSMENT: Status post lumbar fusion L4-L5. DISPOSITION: Includes discharge home today. Instructions, precautions, education. Careful bending, stooping and lifting and mandatory to keep the wound clean and dry. She has a walker at home and prescriptions on her chart. Instructions given in the office. Instructions given here at the hospital.
--- NOTE | 2016-12-24 18:52 | Progress Note ---
Medicine Progress Note Date & Time of Visit: Dec 24, 2016 at 18:49. Subjective Patient seen and examined prior to discharge. Patient anticipating discharge this morning. States that she is ambulating without pain. Objective Last 8 Hrs Date Time Temp Pulse Resp B/P Pulse Ox O2 Delivery O2 Flow Rate FiO2 12/24/16 17:02 37.1 77 17 96 Room Air 12/24/16 15:48 37.1 77 17 117/72 96 Room Air 12/24/16 12:23 36.7 82 16 117/69 98 Room Air Physical Exam: General-awake; alert; NAD Eyes-EOMI; no scleral icterus Neck-no stridor; trachea midline Lungs-CTA bilaterally; no wheezes/crackles Heart-RRR; no m/r/g Abdomen-soft; NTND; nBS Extremities-no c/c/e; no deformity Neuro-no focal deficits; ambulating independently Laboratory Results: Last 24 Hours Test 12/24/16 05:41 Hemoglobin 11.4 g/dL Hematocrit 33.5 % Assessment & Plan S/P POSTERIOR LUMBAR FUSION Doing well postoperatively. HYPERTENSION Continue atenolol and nifedipine. HISTORY OF HEPATITIS C Treated with antiviral therapy at [facility]. HYPOTHYROIDISM Continue levothyroxine. NIGHT SWEATS Patient reports night sweats for about 1 year. No associated fever, cough, wt loss. S/P hysterectomy several years ago. History of hepatitis C, s/p antiviral therapy at [facility] and apparently cured. Recent chest x-rays have demonstrated pulmonary cysts and small pulmonary nodule. Recent CT's abdomen and pelvis have not demonstrated any apparent pathologic adenopathy or other significant pathology. Some of patients medications are associated with night sweats- amlodipine, tramadol, trazodone. Outpatient follow-up recommended. VTE PROPHYLAXIS Per Ortho protocol.
== END 2016-12-24 17:30 | disposition home or self-care (01) | DRG 460 ==
LOC: ENRESERVDT → ENRESERVTM → C.ACU 10:01 → C.3E 15:02
PROVIDERS: ADMIT Orthopaedic Surgery Orthopaedic Surgery of the Spine; ATTEND Orthopaedic Surgery Orthopaedic Surgery of the Spine
PROC: 0SG0071 Fusion of Lumbar Vertebral Joint with Autologous Tissue Substitute, Posterior Approach, Posterior Column, Open Approach (ICD-10-PCS; principal; 2016-12-23 12:40)
PROC: 0SG00AJ Fusion of Lumbar Vertebral Joint with Interbody Fusion Device, Posterior Approach, Anterior Column, Open Approach (ICD-10-PCS; principal; 2016-12-23 12:40)
PROC: 0ST20ZZ Resection of Lumbar Vertebral Disc, Open Approach (ICD-10-PCS; principal; 2016-12-23 12:40)
DX: M43.16 Spondylolisthesis, lumbar region (principal); M41.26 Other idiopathic scoliosis, lumbar region; M51.26 Other intervertebral disc displacement, lumbar region; M32.9 Systemic lupus erythematosus, unspecified; M35.00 Sjogren syndrome, unspecified; M79.7 Fibromyalgia; M06.9 Rheumatoid arthritis, unspecified; R61 Generalized hyperhidrosis; R91.1 Solitary pulmonary nodule; J45.909 Unspecified asthma, uncomplicated; I10 Essential (primary) hypertension; E03.9 Hypothyroidism, unspecified; E78.00 Pure hypercholesterolemia, unspecified; M19.90 Unspecified osteoarthritis, unspecified site; K21.9 Gastro-esophageal reflux disease without esophagitis; B19.20 Unspecified viral hepatitis C without hepatic coma; F43.10 Post-traumatic stress disorder, unspecified; F41.9 Anxiety disorder, unspecified; F32.9 Major depressive disorder, single episode, unspecified; F17.200 Nicotine dependence, unspecified, uncomplicated; Z79.891 Long term (current) use of opiate analgesic; Z79.899 Other long term (current) drug therapy; Z87.898 Personal history of other specified conditions; Z79.1 Long term (current) use of non-steroidal anti-inflammatories (NSAID)

== ENCOUNTER → 2018-04-02 | Day surgery (SDC) | payer OTHER ==
[2018-03-31 14:06] VITALS: Ht 165.1 cm; Wt 69.1 kg
[~2018-04-02] VITALS: Ht 165.1 cm; Wt 69.1 kg
[~2018-04-02] MED LIST changes: +ATEN50TA8 PO; -CEFAZOLIN 2000 MG/60 ML D5W 60 ML IV SCH; -CLON1TAB3 PO; +CLON1TAB4 PO; +DEXAMETHASONE SOD INJ 4 MG/ML VIAL ONE; +FLUT1INH7 INH; +IPRA1AER2 INH; -LACTATED RINGER'S 1000ML 1,000 ML IV SCH; +LAMO200T35 PO; +LIDOCAINE HCL 1% MPF 5 ML VIAL ONE; -METH20TA66 PO; -NCDT21X TD; -NSS 1000ML IV SCH; +OXGN; -QUET1TAB7 PO; +SPRIN/30 INH; -TNR50 PO; +TRAZ100T29 PO
== END | disposition home or self-care (01) ==
LOC: EDSTATUS 10:00 → C.PAT 16:21
PROVIDERS: ATTEND Orthopaedic Surgery Orthopaedic Surgery of the Spine
DX: M54.5 Low back pain (principal); Z53.9 Procedure and treatment not carried out, unspecified reason

== ENCOUNTER 2018-11-09 09:57 | Inpatient (IN) ==
--- NOTE | 2018-10-21 10:21 | PAT Medication Instructions ---
Medication Instructions Date of Service October 21, 2018 Home Medications HOME O2 THERAPY (Oxygen) 2.5L NA HS amlodipine [Norvasc] 5 mg PO QAM atenolol 75 mg PO BID atorvastatin 40 mg PO PM clonazepam 1 tab PO TID cyclobenzaprine 5 mg PO TID NEEDED dicyclomine 10 mg PO DAILY NEEDED diflunisal 500 mg PO BID fluticasone-vilanterol [Breo] 1 puff INHALATION QAM hydroxychloroquine 1 tab PO QAM ipratropium-albuterol [Combivent] 1 puff INHALATION QID NEEDED lamotrigine 100 mg PO QAM lamotrigine 200 mg PO QPM levothyroxine 100 mcg PO QAM lurasidone [Latuda] 1 tab PO QAM meloxicam 1 tab PO DAILY nifedipine 30 mg PO NEEDED omeprazole 20 mg PO QAM polyethylene glycol 3350 1 dose PO QAM prazosin 2 mg PO HS tiotropium bromide [Spiriva] 1 puff INHALATION QAM tramadol 1 tab PO Q6 NEEDED trazodone 1 tab PO HS varenicline [Chantix Starting Month Box] 1 tab PO DIRECTED Continue as directed HOME O2 THERAPY (Oxygen) 2.5L NA HS nifedipine 30 mg PO NEEDED ASK your surgeon for instructions meloxicam 1 tab PO DAILY ASK your prescriber and surgeon diflunisal 500 mg PO BID hydroxychloroquine 1 tab PO QAM DO NOT take the morning of surgery cyclobenzaprine 5 mg PO TID NEEDED dicyclomine 10 mg PO DAILY NEEDED polyethylene glycol 3350 1 dose PO QAM varenicline [Chantix Starting Month Box] 1 tab PO DIRECTED Take morning of surgery With a small sip of water, OTHERWISE NOTHING TO EAT OR DRINK AFTER MIDNIGHT: amlodipine [Norvasc] 5 mg PO QAM atenolol 75 mg PO BID clonazepam 1 tab PO TID fluticasone-vilanterol [Breo] 1 puff INHALATION QAM ipratropium-albuterol [Combivent] 1 puff INHALATION QID NEEDED lamotrigine 100 mg PO QAM levothyroxine 100 mcg PO QAM lurasidone [Latuda] 1 tab PO QAM omeprazole 20 mg PO QAM tiotropium bromide [Spiriva] 1 puff INHALATION QAM tramadol 1 tab PO Q6 NEEDED Take evening before surgery atenolol 75 mg PO BID atorvastatin 40 mg PO PM clonazepam 1 tab PO TID cyclobenzaprine 5 mg PO TID NEEDED dicyclomine 10 mg PO DAILY NEEDED ipratropium-albuterol [Combivent] 1 puff INHALATION QID NEEDED lamotrigine 100 mg PO QAM prazosin 2 mg PO HS tramadol 1 tab PO Q6 NEEDED trazodone 1 tab PO HS Other Notes If you have any questions please call us at [phone] or [phone] or [phone] or [phone]
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
--- NOTE | 2018-11-03 09:53 | XRay Report ---
XR chest Pre-admission PA/Lat CLINICAL HISTORY: 63 years-old Female presenting with preoperative assessment. TECHNIQUE: PA and lateral views of the chest were obtained. COMPARISON: 05/20/2018. FINDINGS: Atherosclerosis of the aortic arch. Cardiac silhouette top normal in size. Lungs and pleural spaces c lear. Osseous structures normal. Upper abdomen normal. IMPRESSION: 1. No acute cardiopulmonary disease. Electronically signed by: Dragan Molina M.D. 11/03/2018 9:52 AM
[2018-11-03 10:27] LABS: Basophils # (auto) 0.02 K/uL (0-0.2); Basophils % (auto) 0.5 %; Eosinophils # (auto) 0.14 K/uL (0-0.5); Eosinophils % (auto) 3.2 %; Hematocrit (blood only) 41.9 % (37-47); Hemoglobin 14.2 g/dL (12.0-16.0); Immature Granulocytes # (auto) 0.01 K/uL (0.00-0.02); Immature Granulocytes % (auto) 0.2 %; Lymphocytes % (auto) 45.5 %; Mean Corpuscular Hgb Conc 33.9 g/dL (32-36); Mean Corpuscular Volume 84.8 fL (80-100); Mean Platelet Volume 10.1 fL (7.4-10.4); Monocytes # (auto) 0.46 K/uL (0.11-0.59); Monocytes % (auto) 10.5 %; Neutrophils # (auto) 1.77 K/uL (1.4-6.5); Neutrophils % (auto) 40.1 %; Platelet Count 216 K/uL (130-400); RDW Coefficient of Variation 15.4 % (11.5-14.5); RDW Standard Deviation 48.2 fL (36.4-46.3); Red Blood Count 4.94 M/uL (4.2-5.4)
[2018-11-03 10:37] LABS: Partial Thromboplastin Ratio 0.9; Prothrombin Time 10.3 Seconds (9.0-12.0)
[2018-11-03 10:42] LABS: BUN Creatinine Ratio 18.5 (10-20); Calcium 9.5 mg/dl (8.5-10.1); Creatinine Clr Calc Pharmacy 68.1 ml/min; Est GFR (African American) 76.9; Est GFR (Non-African American) 66.3; Potassium 3.9 mmol/L (3.5-5.1)
--- NOTE | 2018-11-06 07:46 | History and Physical Report ---
DATE OF ADMISSION: 11/09/2018 CHIEF COMPLAINT: Back pain, lower extremity difficulty, paresthesias, signs and symptoms of nerve root irritation and associated weakness. HISTORY OF PRESENT ILLNESS: Gaurav is delightful. I operated on her a few years ago, did a nice fusion on her for a spondylolisthesis. She did well before she has gone on to a spondylolisthesis, severe degenerative changes at L5-S1, somewhat predictable. She has failed conservative measures. We are doing some revision strategies on her on Friday morning. PAST MEDICAL HISTORY: Positive for low back difficulty, heart disease, diabetes, anxiety, depression, carcinoma, hepatitis C. PAST SURGICAL HISTORY: Hysterectomy, lysis of adhesions, spine surgery. ALLERGIES: IV DYE AND CODEINE. FAMILY HISTORY: Heart disease. Cancer negative. SOCIAL HISTORY: She is . Minimal alcohol. Mild tobacco. Very active lifestyle. REVIEW OF SYSTEMS: Twelve-system review is positive for increased weight gain, headaches, and fatigue. Ear, nose and throat negative. Denies chest pain, palpitations. She admits to wheezing and shortness of breath. Does have a change in bowel habits. Occasional memory loss, depression, lightheadedness. She does have immune deficiency and easy bruisability. MEDICATIONS: Include Flexeril, Ultram, Dolobid, Prilosec, Norvasc, Deltasone. PHYSICAL EXAMINATION: GENERAL: She is an alert, oriented, pleasant young lady. She is 5 feet 6 inches, 160, in distress. VITAL SIGNS: Blood pressure 130/80, pulse 80, respiration 16. HEENT: Pupils react to light and accommodation. Ear, nose and throat clear. CARDIAC: Normal S1, S2, no S3. ABDOMEN: Soft, nontender, bowel sounds present. MUSCULOSKELETAL: She has decreased range of motion of the spine, pain with percussion, loss of sensation, and weakness with plantar flexion. PLAN: Includes removal of posterior spinal implants at L4-L5, extension of fusion in PLIF L5-S1.
[~2018-11-09 09:57] MED LIST changes: -ATEN50TA8 PO; +CEFAZOLIN 2000MG 2,000 MG/15 ML SYR IV SCH; -CLON1TAB4 PO; -CYCL0.052 OP; -DEXAMETHASONE SOD INJ 4 MG/ML VIAL ONE; -DIFL500T PO; -FLUT1INH7 INH; -FLX/5 PO; -IPRA1AER2 INH; -LAMO1TAB21 PO; -LAMO200T35 PO; -LEVO100T PO; -LIDOCAINE HCL 1% MPF 5 ML VIAL ONE; -LPT40 PO; +LR 15ML/HR IV SCH; +LR 60ML/HR IV SCH; -NAPR1TAB9 PO; -NIFE30TA83 PO; -OMEP20CA9 PO; -OXGN; -POLY1POW2 PO; -PRAZ2CAP2 PO; +SODIUM CHLORIDE 0.9% 1,000 ML IV SCH; -SPRIN/30 INH; -TRAM-10 PO; -TRAZ100T29 PO; -VNTHFA/IN INH
--- NOTE | 2018-11-09 11:21 | History & Physical Bridge Note ---
Date of Service November 09, 2018 History & Physical Bridge Note I have examined the patient, reviewed the History & Physical and in the interval since the performance of the History & Physical I have noted the following changes of clinical significance: no changes noted
[2018-11-09] MEDS ORDERED: fentaNYL citrate 100 MCG/2 ML VIAL ONE ×2 (13:22→13:25)
[2018-11-09] MEDS ORDERED: MIDAZOLAM HCL 1 MG/ML 2ML VIAL ONE ×2 (13:22→13:33)
[2018-11-09] MEDS ORDERED: KETAMINE HCL INJ 50 MG/ML 10 ML VIAL ONE ×2 (13:24→15:58)
[2018-11-09] MEDS ORDERED: ALBUT/IPRATROP 3MG/0.5MG NEB 3 ML VIAL NEB STA (13:24)
[2018-11-09] MEDS ORDERED: HYDROmorphone INJ 2 MG/ML SYR/VIAL ONE (13:24)
[2018-11-09] MEDS ORDERED: PROMETHAZINE HCL 12.5 MG in SODIUM CHLORIDE 0.9% 50 ML IV PRN (13:30)
[2018-11-09] MEDS ORDERED: HYDROmorphone INJ 2 MG/ML SYR/VIAL IV PRN (13:30)
[2018-11-09] MEDS ORDERED: ATROPINE SULFATE 0.1 MG/ML 10ML SYR IV PRN (13:30)
[2018-11-09] MEDS ORDERED: PHENYLEPHRINE 100MCG/ML 5ML SYR IV PRN (13:30)
[2018-11-09] MEDS ORDERED: ePHEDrine sulfate 50 MG/ML AMP IV PRN (13:30)
[2018-11-09] MEDS ORDERED: ONDANSETRON INJ 2 MG/ML 2 ML VIAL IV PRN ×2 (13:30→18:37)
[2018-11-09] MEDS ORDERED: GELATIN SPONGE SZ 100 ONE (14:18)
[2018-11-09] MEDS ORDERED: VANCOMYCIN HCL 1000MG/20ML VIAL ONE (14:18)
[2018-11-09] MEDS ORDERED: THROMBIN FOR SOLN 20000 UNIT KIT ONE (14:18)
[2018-11-09] MEDS ORDERED: BACITRACIN INJ 50,000 UNIT VIAL ONE (14:18)
[2018-11-09] MEDS ORDERED: BUPIVACAINE/EPINEPHRINE 0.5% MPF 1:200,000 30 ML VIAL ONE (14:18)
[2018-11-09] MEDS ORDERED: NEOSTIGMINE METHYLSULFATE 5 MG/5 ML SYR ONE (15:56)
[2018-11-09] MEDS ORDERED: ROCURONIUM BROMIDE 10 MG/ML 5 ML VIAL ONE (15:56)
[2018-11-09] MEDS ORDERED: DEXAMETHASONE SOD INJ 4 MG/ML VIAL ONE (15:56)
[2018-11-09] MEDS ORDERED: PROPOFOL IV EMULSION 10 MG/ML 20 ML VIAL IV ONE (15:56)
[2018-11-09] MEDS ORDERED: GLYCOPYRROLATE 0.2 MG/ML VIAL ONE (15:56)
[2018-11-09] MEDS ORDERED: ONDANSETRON INJ 2 MG/ML 2 ML VIAL ONE (15:56)
[2018-11-09] MEDS ORDERED: LIDOCAINE HCL 2% 2 ML VIAL/AMP(20MG/ML) INFIL ONE (15:56)
--- NOTE | 2018-11-09 16:54 | Fluoroscopy Report ---
FL spine 1V any level HISTORY: 63 years-old Female L4-L5 REMOVAL OF IMPLANTS/L5-S1 EXTENSION POSTERIOR LUMBAR F lumbar spi ne fusion COMPARISON: Lumbar spine radiographs 10/13/2018 TECHNIQUE: Single lateral spot fluoroscopic image of the lumbar spine was obtained utilizing 6.1 seco nds fluoroscopy time FINDINGS: Laminectomy changes with posterior pedicle screws noted at L4-S1. Discectomy changes at L4-L5 and L5- S1. Alignment appears satisfactory on the single image. No acute fracture notified. IMPRESSION: Fluoroscopic assistance as above. Please see operative report for further details. The above report was generated using voice recognition software. It may contain grammatical, syntax o r spelling errors. Electronically signed by: Mitchel Perez M.D. 11/09/2018 4:53 PM
--- NOTE | 2018-11-09 16:56 | Post Operative Brief Note ---
Immediate Post Op Note v1 Date of Surgery November 09, 2018 Pre & Post Diagnosis Operation Date: 11/09/18 12:10 Pre-Op Diagnosis: Degenerative Disc Disease; Spondylolisthesis Post-Op Diagnosis: Degenerative Disc Disease; Spondylolisthesis Procedure Operation Date: 11/09/18 12:10 Actual Procedures p L4-L5 Removal Posterior Implants; L5-S1 Extension Fusion (Posterior Lumbar Interbody Fusion) - Abdulkadir Owens DO Surgeon Abdulkadir Owens DO Social Work Nurse chuyita Estimated Blood Loss 250 Findings Consistent with Post-Op Diagnosis Drains Stout Catheter (16 [place] inserted by Delia Montes RN without difficulty.) Disposition Accompanied Patient To Recovery: Yes Overlapping Procedure I was immediately available: during the entire case.
[2018-11-09] MEDS: fentaNYL citrate 100 MCG/2 ML VIAL IV PRN ×2 (17:08→17:50)
--- NOTE | 2018-11-09 17:38 | Anesthesiology Progress Note ---
Date of Service November 09, 2018 Anesthesia Post Procedure Vital Signs Vital Signs: Temp Pulse Pulse Pulse Resp BP Pulse Ox 11/09/18 17:20 77 14 116/67 99 11/09/18 17:10 76 18 111/65 96 11/09/18 17:02 36.2 C L 79 18 107/71 100 11/09/18 13:31 62 18 99 11/09/18 10:27 36.9 C 63 18 120/77 97 Pain Intensity Lower Back: Pain Intensity: 6 Notes Mental Status: alert / awake / arousable Patient Amnestic to Procedure: Yes Nausea / Vomiting: adequately controlled Pain: adequately controlled Airway Patency, RR, SpO2: stable & adequate BP & HR: stable & adequate Hydration State: stable & adequate Anesthetic Complications: no major complications apparent
[2018-11-09] MEDS ORDERED: IPRATROPIUM BROMIDE/ALBUTEROL respimat INH INH PRN (18:37)
[2018-11-09] MEDS ORDERED: ACETAMINOPHEN 1,000 MG/100 ML VIAL IV PRN (18:37)
[2018-11-09] MEDS ORDERED: MAGNESIUM HYDROXIDE SUSP 30 ML UDC PO PRN (18:37)
[2018-11-09] MEDS ORDERED: BISACODYL 10 MG SUPP PR PRN (18:37)
[2018-11-09] MEDS ORDERED: NIFEdipine EXTENDED REL 30 MG TABCR PO PRN (18:37)
[2018-11-09] MEDS ORDERED: SODIUM CHLORIDE 0.9% 1000ML 1,000 ML IV SCH (18:37)
[2018-11-09] MEDS ORDERED: DICYCLOMINE HCL 10 MG CAP PO PRN (18:37)
[2018-11-09] MEDS: TRAZODONE HCL 100 MG TAB PO SCH (20:23)
[2018-11-09] MEDS: DIFLUNISAL 500 MG TAB PO SCH (20:24)
[2018-11-09] MEDS: ATORVASTATIN 40 MG TAB PO SCH (20:26)
[2018-11-09] MEDS: DOCUSATE SODIUM/SENNA 50/8.6MG TAB PO SCH (20:28)
[2018-11-09] MEDS: ATENOLOL 25 MG TABLET PO SCH (20:29)
[2018-11-09] MEDS: clonazePAM 1 MG TAB PO SCH (20:31)
[2018-11-09] MEDS: PRAZOSIN HCL 1 MG CAP PO SCH (20:39)
[2018-11-09] MEDS: lamoTRIgine 100 MG TAB PO SCH (20:39)
[2018-11-09] MEDS ORDERED: [UNRECOGNIZED DRUG - OTHER] SCH (21:00)
[2018-11-09] MEDS: dexAMETHasone 6 MG in SYRINGE 0 ML IV SCH (21:04)
[2018-11-09] MEDS: OXYCODONE HCL IR 5 MG TAB (IMMEDIATE RELEASE) PO PRN (21:34)
[2018-11-09] MEDS ORDERED: CEFAZOLIN 2000MG 2,000 MG/15 ML SYR IV ONE (22:00)
[2018-11-10] MEDS: HYDROmorphone INJ 0.5 MG/0.5 ML SYR IV PRN ×2 (01:10→10:19)
[2018-11-10] MEDS: dexAMETHasone 6 MG in SYRINGE 0 ML IV SCH ×2 (06:08→13:55)
[2018-11-10] MEDS: LEVOTHYROXINE SODIUM 100 MCG TABLET PO SCH (06:08)
[2018-11-10] MEDS ORDERED: Nursing to Pharmacy Communication ONE (07:14)
[2018-11-10] MEDS: OXYCODONE HCL IR 5 MG TAB (IMMEDIATE RELEASE) PO PRN ×3 (07:18→18:44)
--- NOTE | 2018-11-10 07:42 | Operative Report ---
DATE OF OPERATION: 11/09/2018 PREOPERATIVE DIAGNOSES: 1. Stenosis and instability, L5-S1, lumbar spine. 2. Status post operative fixation, lumbar spine fusion, L4-L5, lumbar spine. PROCEDURE: Include laminectomy L4, L5; foraminotomy; partial facetectomies. Pedicle screw instrumentation, L4-L5 and sacrum, posterior lumbar interbody fusion L5-S1, and removal of prior longitudinal rods, I did not remove prior screws. SURGEON: Abdulkadir Owens DO [employer] PROFESSIONAL: Earnest Epstein PA-C COMPLICATIONS: Zero. BLOOD LOSS: 250. ANESTHETIC: General. DESCRIPTION OF PROCEDURE: The patient was taken to the operating room and general intubated anesthetic provided to the patient, placed prone, scrubbed, prepped, draped sterile. We made a skin incision and fascia incision. We came down on the old implants fairly readily. I was able to debride these and then remove the ria. We then completed our decompression of L4, decompression of L5, which in this case would be L5-S1 and L4-L5. We did foraminotomies and partial facetectomies. I was able to identify the pedicle screws from an anatomic standpoint. We safely got pedicle screws into the sacrum. I safely was able to get an interbody device placed at L5-S1, by the [employer], it was a PEEK interbody device placed nicely anterior. We locked down the construct, locked down the rods. We irrigated thoroughly. We then bone grafted out over the transverse processes and sacral ala with allograft and autograft, both allograft and autograft were used. We irrigated thoroughly with approximately 500 mL of fluid. We closed fascia to fascia with #1 Vicryl, 2-0 in the subcuticular layer, staple gun on the skin. Sterile dressing applied. This was all closed over vancomycin powder and Hemovac drain. The patient returned to PACU improved, stable. No apparent complications. Sponge and needle count correct. IMPLANTS USED: [employer]. I attest to the content of the Intraoperative Record and any orders documented therein. Any exception s are noted below.
[2018-11-10] MEDS: clonazePAM 1 MG TAB PO SCH ×3 (08:35→20:59)
[2018-11-10] MEDS: DIFLUNISAL 500 MG TAB PO SCH ×2 (08:35→20:47)
[2018-11-10] MEDS: lamoTRIgine 100 MG TAB PO SCH ×2 (08:36→20:58)
[2018-11-10] MEDS: POLYETHYLENE (MIRALAX) 17 GM PACK PO SCH (08:37)
[2018-11-10] MEDS: LURASIDONE HCL 40 MG TAB PO SCH (08:37)
[2018-11-10] MEDS: PANTOprazole 40 MG TAB PO SCH (08:38)
[2018-11-10] MEDS: HYDROXYCHLOROQUINE SULFATE 200 MG TAB PO SCH (08:38)
[2018-11-10] MEDS: AMLODIPINE BESYLATE 5 MG TAB PO SCH (08:38)
[2018-11-10] MEDS: TIOTROPIUM BROMIDE 5 PUFF/90 MCG INH INH SCH (08:39)
[2018-11-10] MEDS: ATENOLOL 25 MG TABLET PO SCH ×2 (08:40→20:49)
--- NOTE | 2018-11-10 09:43 | Anesthesiology Progress Note ---
Date of Service November 10, 2018 Anesthesia Post Procedure Vital Signs Vital Signs: Temp Pulse Pulse Pulse Pulse Resp BP 11/10/18 07:05 36.9 C 78 18 105/61 11/10/18 06:13 11/10/18 03:26 36.8 C 75 12 98/62 L 11/09/18 22:55 36.7 C 78 16 93/57 L 11/09/18 21:20 36.4 C L 80 16 108/69 11/09/18 20:20 36.4 C L 79 16 117/79 11/09/18 19:25 36.4 C L 80 16 130/84 11/09/18 18:55 36.6 C 76 16 121/78 11/09/18 18:10 73 12 104/64 11/09/18 18:00 74 12 114/64 11/09/18 17:50 77 15 121/78 11/09/18 17:40 82 18 126/88 11/09/18 17:30 36.4 C L 81 15 118/64 11/09/18 17:20 77 14 116/67 11/09/18 17:10 76 18 111/65 11/09/18 17:02 36.2 C L 79 18 107/71 11/09/18 13:31 62 18 11/09/18 10:27 36.9 C 63 18 120/77 Pulse Ox 11/10/18 07:05 97 11/10/18 06:13 96 11/10/18 03:26 98 11/09/18 22:55 99 11/09/18 21:20 99 11/09/18 20:20 99 11/09/18 19:25 100 11/09/18 18:55 94 11/09/18 18:10 97 11/09/18 18:00 97 11/09/18 17:50 98 11/09/18 17:40 98 11/09/18 17:30 97 11/09/18 17:20 99 11/09/18 17:10 96 11/09/18 17:02 100 11/09/18 13:31 99 11/09/18 10:27 97 Pain Intensity Lower Back: Pain Intensity: 6 Notes Mental Status: alert / awake / arousable and participated in evaluation Patient Amnestic to Procedure: Yes Nausea / Vomiting: see Notes below Pain: adequately controlled Airway Patency, RR, SpO2: stable & adequate BP & HR: stable & adequate Hydration State: stable & adequate Anesthetic Complications: no major complications apparent and Pt Satisfied with anesthetic care
[2018-11-10] MEDS: TRAZODONE HCL 100 MG TAB PO SCH (20:45)
[2018-11-10] MEDS: DOCUSATE SODIUM/SENNA 50/8.6MG TAB PO SCH (20:47)
[2018-11-10] MEDS: ATORVASTATIN 40 MG TAB PO SCH (20:47)
[2018-11-10] MEDS: PRAZOSIN HCL 1 MG CAP PO SCH (20:48)
[2018-11-11] MEDS: OXYCODONE HCL IR 5 MG TAB (IMMEDIATE RELEASE) PO PRN ×2 (03:20→12:13)
[2018-11-11] MEDS: LEVOTHYROXINE SODIUM 100 MCG TABLET PO SCH (06:01)
[2018-11-11 08:04] VITALS: TEMP 98.2; O2SAT 97
[2018-11-11] MEDS: clonazePAM 1 MG TAB PO SCH (08:32)
[2018-11-11] MEDS: DIFLUNISAL 500 MG TAB PO SCH (08:32)
[2018-11-11] MEDS: lamoTRIgine 100 MG TAB PO SCH (08:33)
[2018-11-11] MEDS: LURASIDONE HCL 40 MG TAB PO SCH (08:33)
[2018-11-11] MEDS: POLYETHYLENE (MIRALAX) 17 GM PACK PO SCH (08:34)
[2018-11-11] MEDS: AMLODIPINE BESYLATE 5 MG TAB PO SCH (08:35)
[2018-11-11] MEDS: HYDROXYCHLOROQUINE SULFATE 200 MG TAB PO SCH (08:35)
[2018-11-11] MEDS: PANTOprazole 40 MG TAB PO SCH (08:36)
[2018-11-11] MEDS: TIOTROPIUM BROMIDE 5 PUFF/90 MCG INH INH SCH (08:36)
[2018-11-11] MEDS: ATENOLOL 25 MG TABLET PO SCH (08:38)
[2018-11-11 08:59] VITALS: BP 117/81; PULSE 84
--- NOTE | 2018-11-11 10:11 | Discharge Summary ---
She is alert, oriented, minimal complaints of pain, no shortness of breath or chest pain. Neurologically improved, pain improved. ASSESSMENT: Status post reconstructive spine surgery, doing well, short run. PLAN: Includes a discharge home today. Instructions, precautions, brace for support. She has a walker at home. Prescription on chart. Instructions given as well.
== END 2018-11-11 13:40 | disposition home or self-care (01) | DRG 455 ==
LOC: ASU 09:57 → 3E 17:08